=== PATIENT | female | born 1980 | race Caucasian/White ===

== ENCOUNTER 2017-11-09 16:07 | Emergency (ER) | payer OTHER ==
[~2017-11-09] VITALS: Ht 172.7 cm; Wt 66.4 kg
[~2017-11-09 16:07] MED LIST: MULT-506 PO
[2017-11-09 16:11] VITALS: TEMP 37; Ht 172.7 cm; Wt 66.4 kg
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
[2017-11-09 17:49] LABS: HEMATOCRIT 34.4 % (37-47); HEMOGLOBIN 11.5 g/dL (12.0-16.0); MEAN CELL VOLUME 88.7 fL (80-100); MEAN CORPUSCULAR HEMOGLOBIN 29.6 pg (25-34); MEAN CORPUSCULAR HGB CONC 33.4 g/dl (32-36); MEAN PLATELET VOLUME 10.5 fL (7.4-10.4); PLATELET COUNT 241 K/uL (130-400); RED CELL DISTRIBUTION WIDTH CV 14.7 % (11.5-14.5); RED CELL DISTRIBUTION WIDTH SD 47.8 fL (36.4-46.3); WHITE BLOOD COUNT 7.04 K/uL (4.8-10.8)
[2017-11-09 18:09] LABS: ALBUMIN 3.8 gm/dl (3.4-5.0); BASO % 0.4 %; BASO ABS # 0.03 K/uL (0-0.2); CALCIUM 8.3 mg/dl (8.5-10.1); CREATININE 0.73 mg/dl (0.60-1.20); EOS % 0.3 %; EOS ABS # 0.02 K/uL (0-0.5); IG# 0.02 K/uL (0.00-0.02); LYMPH % 20.5 %; LYMPH ABS # 1.44 K/uL (1.2-3.4); MONO % 5.8 %; MONO ABS # 0.41 K/uL (0.11-0.59); NEUT % 72.7 %; NEUT ABS # 5.12 K/uL (1.4-6.5); POTASSIUM 3.3 mmol/L (3.5-5.1)
[2017-11-09 18:20] LABS: TOTAL PROTEIN 7.3 gm/dl (6.4-8.2)
--- NOTE | 2017-11-10 02:15 | EMERGENCY ROOM VISIT NOTE ---
ED Visit Note This patient was signed out to me by Dr. Staton at shift change. The patient was awaiting psychiatric evaluation placement she had been medically cleared. It was felt she needed to come in due to her inability to care for herself with her escalating bipolar. She apparently is not on any meds. She was placed in [place] and will be transferred to [place] in the morning voluntarily on a 201.
--- NOTE | 2017-11-10 08:47 | EMERGENCY ROOM VISIT NOTE ---
ED Visit Note First contact with patient: 07:30 Patient signed out to me by Dr. Alegria. Patient awaiting transport via [facility] to [place]. Patient signed 201. No issues reported to me overnight.
--- NOTE | 2017-11-10 13:17 | EMERGENCY ROOM VISIT NOTE ---
ED Visit Note Patient signed out to me awaiting psych evaluation. Patient not not willing to go 201. 302 filed by patients mother. Patient unable to take care of self due to paranoia. Patient sent admitted to [facility] via 302.
[2017-11-10 13:41] VITALS: BP 123/79; PULSE 72; O2SAT 99
== END 2017-11-10 13:42 ==
LOC: C.EDB 16:09 → C.EDA 11-10 13:42
DX: F30.9 Manic episode, unspecified (principal); F41.0 Panic disorder [episodic paroxysmal anxiety]; J45.909 Unspecified asthma, uncomplicated; Z82.49 Family history of ischemic heart disease and other diseases of the circulatory system; Z84.1 Family history of disorders of kidney and ureter; R03.0 Elevated blood-pressure reading, without diagnosis of hypertension

== ENCOUNTER 2017-12-04 14:01 | Emergency (ER) | payer OTHER ==
[~2017-12-04] VITALS: Ht 175.3 cm; Wt 70.4 kg
[2017-12-04 14:05] VITALS: TEMP 36.4; Ht 175.3 cm; Wt 70.4 kg
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
[2017-12-04] MEDS ORDERED: DPKSR/500 PO (14:55)
[2017-12-04] MEDS ORDERED: TPM25 PO (14:55)
[2017-12-04] MEDS ORDERED: ZYP15 PO (14:55)
[2017-12-04 15:04] LABS: BASO % 0.4 %; BASO ABS # 0.02 K/uL (0-0.2); EOS % 1.2 %; EOS ABS # 0.06 K/uL (0-0.5); HEMATOCRIT 35.1 % (37-47); HEMOGLOBIN 11.8 g/dL (12.0-16.0); IG# 0.01 K/uL (0.00-0.02); LYMPH % 31.1 %; LYMPH ABS # 1.51 K/uL (1.2-3.4); MEAN CELL VOLUME 90.9 fL (80-100); MEAN CORPUSCULAR HEMOGLOBIN 30.6 pg (25-34); MEAN CORPUSCULAR HGB CONC 33.6 g/dl (32-36); MEAN PLATELET VOLUME 10.5 fL (7.4-10.4); MONO ABS # 0.34 K/uL (0.11-0.59); NEUT % 60.1 %; NEUT ABS # 2.92 K/uL (1.4-6.5); PLATELET COUNT 238 K/uL (130-400); RED CELL DISTRIBUTION WIDTH CV 15.2 % (11.5-14.5); RED CELL DISTRIBUTION WIDTH SD 50.7 fL (36.4-46.3); WHITE BLOOD COUNT 4.86 K/uL (4.8-10.8)
--- NOTE | 2017-12-04 15:13 | DIAGNOSTIC IMAGING REPORT ---
CHEST ONE VIEW PORTABLE CLINICAL HISTORY: Chest pain. COMPARISON STUDY: No previous studies for comparison. FINDINGS: There is mild S-shaped curvature of the thoracolumbar spine. No pneumothorax or pleural effusion is identified. Pulmonary vascularity is normal. Cardiac size is normal. Mediastinal contours are normal. Lungs are clear. IMPRESSION: No acute cardiopulmonary findings. Electronically signed by: Samuel Spencer M.D. 12/04/2017 3:12 PM Dictated Date/Time: 12/04/2017 3:11 PM
[2017-12-04 15:29] LABS: ALBUMIN 3.7 gm/dl (3.4-5.0); CALCIUM 8.2 mg/dl (8.5-10.1); CREATININE 0.93 mg/dl (0.60-1.20); POTASSIUM 3.3 mmol/L (3.5-5.1)
[2017-12-04 15:40] LABS: TOTAL PROTEIN 7.2 gm/dl (6.4-8.2)
[2017-12-04 17:21] VITALS: BP 122/78
[2017-12-04 19:00] VITALS: PULSE 86; O2SAT 100
[2017-12-04] MEDS ORDERED: VALA500T60 PO (22:37)
== END 2017-12-04 19:01 | disposition home or self-care (01) ==
LOC: C.EDB 14:05 → C.EDA 19:01
DX: F31.9 Bipolar disorder, unspecified (principal); F41.9 Anxiety disorder, unspecified; R45.851 Suicidal ideations; R07.9 Chest pain, unspecified; Z59.0 Homelessness; J45.909 Unspecified asthma, uncomplicated

== ENCOUNTER 2017-12-04 19:53 | Emergency (ER) | payer OTHER ==
[~2017-12-04] VITALS: Ht 175.3 cm; Wt 70.4 kg
[~2017-12-04 19:53] MED LIST changes: +DPKSR/500 PO; +TPM25 PO; +ZYP15 PO
[2017-12-04 20:02] VITALS: TEMP 37; Ht 175.3 cm; Wt 70.4 kg
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
[2017-12-04] MEDS ORDERED: TOPIRAMATE 25 MG TAB PO STA (21:50)
[2017-12-04] MEDS ORDERED: DIVALPROEX 500 MG EXTENDED RELEASE TAB PO ONE (22:00)
[2017-12-04] MEDS ORDERED: VALA500T60 PO (22:37)
[2017-12-04] MEDS ORDERED: OLANZAPINE 5 MG TAB PO ONE (22:45)
[2017-12-05] MEDS ORDERED: POTASSIUM CHLORIDE 20 MEQ TABCR PO STA (01:06)
--- NOTE | 2017-12-05 02:33 | EMERGENCY ROOM VISIT NOTE ---
ED Visit Note First contact with patient: 00:23 This case was signed out to me at change of shift awaiting bed placement. The patient requested a dose of Valtrex stating that she is under significant increased stress and is concerned that she may have an outbreak of herpes as a result of this. She states that she typically takes this prophylactically in such situations. This patient was accepted at [facility] psychiatric facility. She will be transported there at 3:15.
[2017-12-05 03:30] VITALS: BP 104/67; PULSE 82; O2SAT 99
[2017-12-05] MEDS ORDERED: OLANZAPINE 10 MG TAB PO SCH (21:00)
== END 2017-12-05 03:32 ==
LOC: C.EDA 19:55
DX: F06.33 Mood disorder due to known physiological condition with manic features (principal); F41.9 Anxiety disorder, unspecified; J45.909 Unspecified asthma, uncomplicated; F41.0 Panic disorder [episodic paroxysmal anxiety]

== ENCOUNTER → 2017-12-19 | Outpatient (CLI) | payer OTHER ==
[~2017-12-19] MED LIST changes: -MULT-506 PO; +VALA500T60 PO
[2017-12-19 14:14] LABS: ALBUMIN 3.7 gm/dl (3.4-5.0); TOTAL PROTEIN 7.4 gm/dl (6.4-8.2)
== END | disposition home or self-care (01) ==
LOC: C.LAB1850 11:32
PROVIDERS: ATTEND Psychiatry & Neurology Psychiatry
DX: F31.2 Bipolar disorder, current episode manic severe with psychotic features (principal)

== ENCOUNTER 2017-12-31 11:28 | Emergency (ER) | payer OTHER ==
[~2017-12-31] VITALS: Ht 175.3 cm; Wt 77.7 kg
[2017-12-31 11:30] VITALS: TEMP 36.6; Ht 175.3 cm; Wt 77.7 kg
[2017-12-31] MEDS ORDERED: KETOROLAC TROMETHAMINE 30 MG/ML VIAL IV STA (11:49)
[2017-12-31] MEDS ORDERED: SODIUM CHLORIDE 0.9% 1000ML 1,000 ML IV STA (11:49)
[2017-12-31] MEDS ORDERED: ERTA1INJ IV (11:55)
[2017-12-31 12:54] LABS: ALBUMIN 3.8 gm/dl (3.4-5.0); ALKALINE PHOSPHATASE 55 U/L (45-117); ALT/SGPT 25 U/L (12-78); AST/SGOT 21 U/L (15-37); BLOOD UREA NITROGEN 17 mg/dl (7-18); CALCIUM 8.2 mg/dl (8.5-10.1); CARBON DIOXIDE 25 mmol/L (21-32); CREATININE 0.73 mg/dl (0.60-1.20); GLUCOSE 81 mg/dl (70-99); LIPASE 241 U/L (73-393); POTASSIUM 4.2 mmol/L (3.5-5.1); SODIUM 139 mmol/L (136-145); TOTAL PROTEIN 7.6 gm/dl (6.4-8.2)
--- NOTE | 2017-12-31 13:42 | DIAGNOSTIC IMAGING REPORT ---
PELVIC ULTRASOUND, TRANSABDOMINAL AND TRANSVAGINAL HISTORY: Left lower quadrant abdominal pain. COMPARISON: Pelvic ultrasound 10/22/2013. FINDINGS: Uterus: 10.4 x 6.3 x 7.2 cm. No uterine masses. Endometrial stripe: 1.5 cm in thickness. The major venous slightly heterogeneous. Right ovary: Normal in size and demonstrates normal color flow. A few small follicles/cysts. Left ovary: Normal in size and demonstrates normal color flow. A few small follicles/cysts. Dominant cyst measures 2.3 cm. Miscellaneous:Trace pelvic free fluid. This is likely physiologic. IMPRESSION: 1. Slightly heterogeneous endometrium which is top normal in thickness measuring 1.5 cm. Please correlate with the stage of the patient's menstrual cycle. 2. Trace pelvic free fluid which is likely physiologic. 3. Normal ovaries. Electronically signed by: Tomi Ryan M.D. 12/31/2017 1:41 PM Dictated Date/Time: 12/31/2017 1:36 PM
[2017-12-31 13:54] LABS: BASO % 0.9 %; BASO ABS # 0.04 K/uL (0-0.2); EOS % 5.1 %; EOS ABS # 0.23 K/uL (0-0.5); HEMATOCRIT 35.1 % (37-47); HEMOGLOBIN 11.4 g/dL (12.0-16.0); IG# 0.01 K/uL (0.00-0.02); LYMPH % 32.3 %; LYMPH ABS # 1.46 K/uL (1.2-3.4); MEAN CELL VOLUME 94.6 fL (80-100); MEAN CORPUSCULAR HEMOGLOBIN 30.7 pg (25-34); MEAN CORPUSCULAR HGB CONC 32.5 g/dl (32-36); MEAN PLATELET VOLUME 11.2 fL (7.4-10.4); MONO % 9.5 %; MONO ABS # 0.43 K/uL (0.11-0.59); NEUT ABS # 2.35 K/uL (1.4-6.5); PLATELET COUNT 158 K/uL (130-400); RED CELL DISTRIBUTION WIDTH CV 15.1 % (11.5-14.5); RED CELL DISTRIBUTION WIDTH SD 51.8 fL (36.4-46.3); WHITE BLOOD COUNT 4.52 K/uL (4.8-10.8)
[2017-12-31 14:40] VITALS: BP 122/82; PULSE 84; O2SAT 98
--- NOTE | 2017-12-31 15:03 | EMERGENCY ROOM VISIT NOTE ---
History Report prepared by Rubin: Balwinder Bay Under the Supervision of: Dr. Kirk Burks D.O. First contact with patient: 11:36 Chief Complaint: ABDOMINAL PAIN Stated Complaint: ABD PAIN, POSS HERPES RELATED History of Present Illness The patient is a 37 year old female who presents to the Emergency Room with complaints of intermittent LLQ abdominal pain beginning one week ago. The patient has a history of similar abdominal pain with uncertain cause. She has a history of herpes (x1 month) and is worried her symptoms may be related. She feels that she could have something pushing on her herpes lesions. The patient rates her pain as a 5/10 in severity. She describes her pain as "sharp" and "stabbing". Her pain is improved with eating less. The patient notes that she had recent unprotected intercourse two weeks ago and is worried she could be . Her last normal bowel movement was today. Patient has no other complaints at this time. Source of History: patient Onset: One week ago Position: abdomen (LLQ) Symptom Intensity: 5/10 Quality: sharp, stabbing Timing: intermittent Modifying Factors (Relieving): other (Eating less) Review of Systems See HPI for pertinent positives & negatives. A total of 10 systems reviewed and were otherwise negative. Past Medical & Surgical Medical Problems: (1) Asthma (2) Panic disorder Family History FH: cancer Hypertension Kidney disease Kidney stones Social History Smoking Status: Never Smoker Alcohol Use: none Marital Status: single Housing Status: lives with family Occupation Status: employed Current/Historical Medications Scheduled Ertapenem Sodium (Invanz), 1 GM IV UD Valacyclovir (Valtrex), 500 MG PO DAILY Allergies Coded Allergies: No Known Allergies (Unverified , 12/31/17) Physical Exam Vital Signs Date Time Temp Pulse Resp B/P (MAP) Pulse Ox O2 Delivery O2 Flow Rate FiO2 12/31/17 14:40 84 20 122/82 98 12/31/17 13:42 84 20 108/82 100 Room Air 12/31/17 11:30 36.6 88 18 120/77 98 Room Air Physical Exam GENERAL: Sitting up in bed, disheveled, no distress, non-toxic EYE EXAM: normal conjunctiva. OROPHARYNX: no exudate, no erythema, lips, buccal mucosa, and tongue normal and mucous membranes are moist NECK: supple, no nuchal rigidity, no adenopathy, non-tender LUNGS: Clear to auscultation. Normal chest wall mechanics HEART: no murmurs, S1 normal and S2 normal ABDOMEN: abdomen soft, non-tender, normo-active bowel sounds, no masses, no rebound or guarding. BACK: Back is symmetrical on inspection and there is no deformity, no midline tenderness, no CVA tenderness. PELVIC: Normal external genitalia with exception of two small bumps of left labia majora. Normal vaginal mucosa. No adnexal tenderness. SKIN: no rashes and no bruising UPPER EXTREMITIES: upper extremities are grossly normal. LOWER EXTREMITIES: No pitting edema. NEURO EXAM: Normal sensorium, cranial nerves II-XII grossly intact, normal speech, no gross weakness of arms, no gross weakness of legs. Medical Decision & Procedures ER Provider Diagnostic Interpretation: Radiology results as stated below per my review and the radiologist's interpretation: PELVIC ULTRASOUND, TRANSABDOMINAL AND TRANSVAGINAL FINDINGS: Uterus: 10.4 x 6.3 x 7.2 cm. No uterine masses. Endometrial stripe: 1.5 cm in thickness. The major venous slightly heterogeneous. Right ovary: Normal in size and demonstrates normal color flow. A few small follicles/cysts. Left ovary: Normal in size and demonstrates normal color flow. A few small follicles/cysts. Dominant cyst measures 2.3 cm. Miscellaneous:Trace pelvic free fluid. This is likely physiologic. IMPRESSION: 1. Slightly heterogeneous endometrium which is top normal in thickness measuring 1.5 cm. Please correlate with the stage of the patient's menstrual cycle. 2. Trace pelvic free fluid which is likely physiologic. 3. Normal ovaries. Electronically signed by: Tomi Ryan M.D. 12/31/2017 1:41 PM Laboratory Results 12/31/17 13:38 Red Blood Count 3.71, Mean Corpuscular Volume 94.6, Mean Corpuscular Hemoglobin 30.7, Mean Corpuscular Hemoglobin Concent 32.5, Mean Platelet Volume 11.2, Neutrophils (%) (Auto) 52.0, Lymphocytes (%) (Auto) 32.3, Monocytes (%) (Auto) 9.5, Eosinophils (%) (Auto) 5.1, Basophils (%) (Auto) 0.9, Neutrophils # (Auto) 2.35, Lymphocytes # (Auto) 1.46, Monocytes # (Auto) 0.43, Eosinophils # (Auto) 0.23, Basophils # (Auto) 0.04 12/31/17 12:06 Test 12/31/17 12:06 12/31/17 12:15 12/31/17 13:38 12/31/17 13:50 Anion Gap 5.0 mmol/L (3-11) Est Creatinine Clear Calc Drug Dose 109.3 ml/min Estimated GFR () 121.1 Estimated GFR (Non- 104.5 BUN/Creatinine Ratio 23.0 (10-20) Calcium Level 8.2 mg/dl (8.5-10.1) Total Bilirubin 0.3 mg/dl (0.2-1) Direct Bilirubin < 0.1 mg/dl (0-0.2) Aspartate Amino Transf (AST/SGOT) 21 U/L (15-37) Alanine Aminotransferase (ALT/SGPT) 25 U/L (12-78) Alkaline Phosphatase 55 U/L (45-117) Total Protein 7.6 gm/dl (6.4-8.2) Albumin 3.8 gm/dl (3.4-5.0) Lipase 241 U/L (73-393) Urine Color YELLOW Urine Appearance CLEAR (CLEAR) Urine pH 5.5 (4.5-7.5) Urine Specific Dorena 1.023 (1.000-1.030) Urine Protein NEG (NEG) Urine Glucose (UA) NEG (NEG) Urine Ketones NEG (NEG) Urine Occult Blood NEG (NEG) Urine Nitrite NEG (NEG) Urine Bilirubin NEG (NEG) Urine Urobilinogen NEG (NEG) Urine Leukocyte Esterase SMALL (NEG) Urine WBC (Auto) 5-10 /hpf (0-5) Urine RBC (Auto) 0-4 /hpf (0-4) Urine Hyaline Casts (Auto) 1-5 /lpf (0-5) Urine Epithelial Cells (Auto) >30 /lpf (0-5) Urine Bacteria (Auto) 1+ (NEG) Urine Test NEG (NEG) White Blood Count 4.52 K/uL (4.8-10.8) Red Blood Count 3.71 M/uL (4.2-5.4) Hemoglobin 11.4 g/dL (12.0-16.0) Hematocrit 35.1 % (37-47) Mean Corpuscular Volume 94.6 fL (80-100) Mean Corpuscular Hemoglobin 30.7 pg (25-34) Mean Corpuscular Hemoglobin Concent 32.5 g/dl (32-36) Platelet Count 158 K/uL (130-400) Mean Platelet Volume 11.2 fL (7.4-10.4) Neutrophils (%) (Auto) 52.0 % Lymphocytes (%) (Auto) 32.3 % Monocytes (%) (Auto) 9.5 % Eosinophils (%) (Auto) 5.1 % Basophils (%) (Auto) 0.9 % Neutrophils # (Auto) 2.35 K/uL (1.4-6.5) Lymphocytes # (Auto) 1.46 K/uL (1.2-3.4) Monocytes # (Auto) 0.43 K/uL (0.11-0.59) Eosinophils # (Auto) 0.23 K/uL (0-0.5) Basophils # (Auto) 0.04 K/uL (0-0.2) RDW Standard Deviation 51.8 fL (36.4-46.3) RDW Coefficient of Variation 15.1 % (11.5-14.5) Immature Granulocyte % (Auto) 0.2 % Immature Granulocyte # (Auto) 0.01 K/uL (0.00-0.02) Date/Time Source Procedure Growth Status 12/31/17 13:50 Cervix Lesion Trichomonas Preparation - Final Complete Laboratory results per my review. Medications Administered Medications (Trade) Dose Ordered Sig/Denzel Route Start Time Stop Time Status Last Admin Dose Admin Sodium Chloride 1,000 ml @ 999 mls/hr Q1H1M STAT IV 12/31/17 11:49 12/31/17 12:49 DC 12/31/17 12:06 999 MLS/HR Ketorolac Tromethamine (Toradol Inj) 30 mg NOW STAT IV 12/31/17 11:49 12/31/17 11:52 DC 12/31/17 12:06 30 MG ED Course ED COURSE: Vital signs were reviewed and appeared normal The patients medical record was reviewed The above diagnostic studies were performed and reviewed. ED treatments and interventions as stated above. 1143: The patient was evaluated in room C3. A complete history and physical examination was performed. 1149: Ordered Toradol Inj 30 mg IV, Sodium Chloride 1000 ml @ 999 mls/hr IV. 1426: Upon reevaluation, the patient is resting comfortably. I discussed my findings with the patient and she understands and agrees with the treatment plan. Based on the patients age, coexisting illnesses, exam and lab findings the decision to treat as an outpatient was made. The patient remained stable while under my care. The patient appeared well at the time of discharge. Medical Decision Differential diagnoses includes but is not limited to gastritis, peptic ulcer disease, GERD, gallbladder disease, pancreatitis, small bowel obstruction, acute coronary syndrome, pericarditis, ischemic bowel, irritable bowel disease, irritable bowel syndrome, appendicitis, diverticulitis, malignancy, hernia, urinary tract infection, torsion, /ectopic , perforation, trauma, infectious. Patient is a 37-year-old female who presents the ER for left lower quadrant abdominal pain which is worsened after eating. She does note some recent herpetic lesions which does cause her to have some burning with urination. Abdominal exam is benign. CBC along with BMP, LFTs, bilirubin lipase is normal. UA contaminated with multiple epithelial cells. We will not treat at this time. Urine negative. Pelvic ultrasound was fairly unremarkable. Pelvic was benign without signs of STDs. Cultures were sent. Patient was updated at bedside as this is worse after eating I do not feel that this is STD related especially with the benign pelvic. Patient was updated at bedside. Will await cultures. Instructed to take Tylenol Motrin. Nothing to suggest obstruction and she is eating and drinking without difficulty. Discussed with Pt concerning signs and symptoms to watch out for. Pt was instructed to follow up with their PCP and discussed with the patient their option to return to the ED at anytime for persistent or worsening symptoms. The appropriate anticipatory guidance and out-patient management, including indications for return to the emergency department, were explained at length to the patient and understood. Medication Reconcilliation Current Medication List: was personally reviewed by me Blood Pressure Screening Patient's blood pressure: Normal blood pressure Blood pressure disposition: Did not require urgent referral Impression Primary Impression: Abdominal pain Scribe Attestation The scribe's documentation has been prepared under my direction and personally reviewed by me in its entirety. I confirm that the note above accurately reflects all work, treatment, procedures, and medical decision making performed by me. Departure Information Dispostion Home / Self-Care Referrals RV. Castañeda MD (PCP) Forms Call Back Authorization, HOME CARE DOCUMENTATION FORM, IMPORTANT VISIT INFORMATION Patient Instructions Abdominal Pain - [facility], [facility] Additional Instructions Please follow up with your primary care doctor with in the next 24 hours. Any worsening of your symptoms, please return to the ED immediately. This includes any fevers greater than 100.4, worsening pain, chest pain, shortness breath, persistent nausea, vomiting, unable to eat or drink, or any other concerning signs or symptoms from your standpoint. Please take Tylenol or Motrin as needed for pain. Problem Qualifiers Primary Impression: Abdominal pain Abdominal location: unspecified location Qualified Codes: R10.9 - Unspecified abdominal pain
== END 2017-12-31 14:42 | disposition home or self-care (01) ==
LOC: C.EDB 11:31 → C.EDC 14:42
DX: R10.32 Left lower quadrant pain (principal); N94.9 Unspecified condition associated with female genital organs and menstrual cycle; Z86.59 Personal history of other mental and behavioral disorders

== ENCOUNTER 2021-12-07 08:47 | Inpatient (IN) ==
[2021-12-07] MEDS ORDERED: LORazepam 1 MG TAB PO PRN (09:39)
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
[2021-12-07 10:21] LABS: Basophils # (auto) 0.03 K/uL (0-0.2); Basophils % (auto) 0.7 %; Eosinophils # (auto) 0.04 K/uL (0-0.5); Eosinophils % (auto) 0.9 %; Hemoglobin 12.2 g/dL (12.0-16.0); Lymphocytes # (auto) 1.11 K/uL (1.2-3.4); Mean Corpuscular Hemoglobin 29.5 pg (25-34); Mean Corpuscular Volume 89.4 fL (80-100); Mean Platelet Volume 11.4 fL (7.4-10.4); Monocytes # (auto) 0.44 K/uL (0.11-0.59); Monocytes % (auto) 9.9 %; Neutrophils # (auto) 2.82 K/uL (1.4-6.5); Neutrophils % (auto) 63.5 %; Platelet Count 277 K/uL (130-400); RDW Coefficient of Variation 14.5 % (11.5-14.5); RDW Standard Deviation 47.3 fL (36.4-46.3); Red Blood Count 4.14 M/uL (4.2-5.4); White Blood Count 4.44 K/uL (4.8-10.8)
[2021-12-07 10:41] LABS: Pregnancy Test, Serum Negative (Negative)
[2021-12-07 10:44] LABS: Acetaminophen < 3 ug/ml (10-30); Salicylate < 3.0 mg/dl (3.0-30)
[2021-12-07 10:46] LABS: Alanine Aminotransferase 9 U/L (7-52); Albumin Globulin Ratio 1.5 (0.9-2); Albumin Level 4.2 gm/dl (3.4-5.0); Alkaline Phosphatase 56 U/L (34-104); Anion Gap 7 (3-11); Aspartate Aminotransferase 17 U/L (13-39); BUN Creatinine Ratio 19.4 (10-20); Bilirubin,Total 1.4 mg/dl (0.2-1.0); Blood Urea Nitrogen 12 mg/dl (6-23); Carbon Dioxide 26 mmol/L (21-32); Chloride 108 mmol/L (98-107); Est GFR (African American) 128.9 ml/min; Est GFR (Non-African American) 111.2 ml/min; Globulin 2.8 gm/dl (2.5-4.0); Glucose 84 mg/dl (70-99(Fasting)); Potassium 3.5 mmol/L (3.5-5.1); Sodium 141 mmol/L (136-145)
[2021-12-07 12:50] LABS: Appearance Urine Clear (Clear); Bacteria Urine Automated Negative (Negative); Bilirubin Urine Negative (Negative); Blood Urine Negative (Negative); Color Urine Yellow; Epithelial Cell Urine Auto >30 /lpf (0-5); Glucose Urine UA Negative (Negative); Ketones Urine 1+ (Negative); Leukocyte Esterase Urine Negative (Negative); Nitrite Urine Negative (Negative); RBC Urine Automated 0-4 /hpf (0-4); Specific Gravity Urine 1.023 (1.000-1.030); Urobilinogen Urine Negative (Negative); pH Urine 7.5 (4.5-7.5)
[2021-12-07 12:56] LABS: Protein Urine Trace (Negative)
[2021-12-07 13:11] LABS: Amphetamines+Metham, Urine Neg (Neg); Barbiturates, Urine Neg (Neg); Benzodiazepine, Urine Neg (Neg); Cocaine, Urine Neg (Neg); MDMA (Ecstacy), Urine Neg (Neg); Methadone, Urine Neg (Neg); Opiate, Urine Neg (Neg); Phencyclidine, Urine Neg (Neg)
--- NOTE | 2021-12-07 15:45 | Emergency Department Note ---
ED Visit Note ED Physician Sign Out Note: 41 yr old female arriving with increasing manic thoughts with suicidal thoughts. Here requesting psychiatric hospitalization. Initially evaluated and medically cleared by Dr Guzman pending placement. Was evaluated by [facility] and patient signed a 201 voluntary commitment. This was signed by me. She will be excepted to [facility] for further management and evaluation. Saurav Enriquez MD
[2021-12-07] MEDS ORDERED: MAGNESIUM HYDROXIDE SUSP 30 ML UDC PO PRN (16:43)
[2021-12-07] MEDS ORDERED: SODIUM CHLORIDE 0.65% NA SOLN 45 ML (OCEAN) PRN (16:43)
[2021-12-07] MEDS ORDERED: BISMUTH SUBSALICYLATE LIQD 236 ML PO PRN (16:43)
[2021-12-07] MEDS ORDERED: ALUMINUM/MAGNESIUM SUSP 30 ML UDC PO PRN (16:43)
[2021-12-07] MEDS ORDERED: ACETAMINOPHEN 325 MG TAB PO PRN (16:43)
[2021-12-07] MEDS ORDERED: QUEtiapine FUMARATE 100 MG TABLET PO PRN (17:35)
[2021-12-07] MEDS ORDERED: Flu Vaccine (Fluarix) 0.5mL SYR (Standard Dose) IM ONE (22:00)
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
[2021-12-08] MEDS: hydrOXYzine HCl 25 MG TAB PO PRN ×2 (14:05→20:53)
[2021-12-09 08:19] LABS: Chol HDL Ratio 3.5 (0-5)
--- NOTE | 2021-12-09 08:35 | Psychiatric Progress Note ---
Date of Service December 09, 2021 Impression / Recommendations Impression The patient is a 41 year old with a history of OCD, BPAD, PTSD and MCKAYLA with panic attacks and agoraphobia who was admitted for increasing anxiety and paranoia. Diagnostically consistent with acute meet from BPAD as well as co- morbid conditions per history. The patient is deemed unstable and requires psychiatric hospitalization for diagnostic clarification, safety and stabilization, medication management and development of further coping skills. MNPR due to paranoia and acute meet and concerns of being monitored by peers. 12/09/21: Reviewed fasting labs, which were normal (LDL low risk at 109). Decline d Abilify but agrees to try tomorrow. Utilizing Vistaril for anxiety with good effect. Continues to present with symptoms concerning for meet with irritability, mood lability and paranoia. (1) Bipolar 1 disorder with moderate meet: (2) Panic disorder/agoraphobia, sev agoraphobic avoidance/mod panic attack: (3) Suicidal ideations: (4) Generalized anxiety disorder with panic attacks: (5) Post traumatic stress disorder (PTSD): (6) OCD (obsessive compulsive disorder): 12/09/21: provided with clock per her request. Continue current medications and tx plan. 12/08/21: The patient was admitted to the [facility] ([facility] inpatient mental health unit) on q15 min checks (behavioral with suicide precautions) for safety. The patient will participate in group, recreational, and milieu therapies and will be offered additional individual and family sessions as clinically appropriate. -fasting glucose and lipid panel -ativan 0.5 mg BID prn -abilify 2.5 mg qd -Vistaril 25mg q4h prn Inventory Assets Strengths: motivated to feel better, suportive family Needs: additional coping skills, outpatient providers, medication adjustments Risk Factors Assessment : Yes Do You Have Access To A Gun?: No Health Problems: No Mental Health Diagnoses: Yes Substance Use Disorders: No Previous Attempt: Yes Family History of Suicide: No Previous Psychiatric Hospitalization: Yes Hopelessness: Yes Protective Factors Assessment Responsible for Young Children: Yes Employed: No Stable Relationships: Yes Supportive Family: Yes Interval History Identifying Information JANIYA FERNANDEZ is a 41-year-old woman who currently lives with her parents in their home in [place], has a history of BPAD, OCD, PTSD, and MCKAYLA with panic attacks and agoraphobia and was admitted on 12/07/21 17:21 on a 201 voluntary commitment for increased anxiety, SI and concern for acute meet. Chief Complaint "I'm really irritable today". Review of Systems Sleep Information Total Hours of Sleep: 10 Meal Information Percent Meal Consumed - Breakfast: 85 Percent Meal Consumed - Lunch: 75 Percent Meal Consumed - Dinner: 75 Nutrition Comment: per meal record Subjective Subjective Patient was seen & assessed and interval progress reviewed with treatment team nursing and social work. Less grandiose and irritable last night but still very tangential. Fell asleep last night and slept through both groups. Got very upset when staff were doing checks overnight and found a spoon in her room and started to remove it and she became very anxious about staff and not sure where she was and fears that someone was trying to hurt her. She requested a sign on her door stating she was agoraphobic but changed her mind about this. Utilized prn Vistaril, declined prn ativan. Frustrated this morning that another peer's clothing was in the unit dryer and therefore did not want to use the washer. Anxious about showering here. Declined morning abilify. Reviewed fasting labs with her. She reports feeling "very irritable" and "angry" and "depressed" which she attributes to being in the hospital for [facility] and due to not having the meal items she wanted on her breakfast tray. Wonders if others may have moved around her items or put extra items, such as syrup, on her tray to "mess with me". Reviewed her concerns about staff checks and discussed plan of having staff try to wake her up if they need to remove anything from her room. Reviewed her concerns about abilify-she feels if she takes it today she will attribute her poor mood to a medication side effect since her breakfast was "messed up". She agreed to start it tomorrow. Reviewed her past trial of Invega PICKETT which lead to orthostatic hypotension and dizziness. Tearful at times discussing challenge of being in the hospital and her recent move and how this makes her agoraphobia worse. Found the vistaril helpful, denies any side effects except some fatigue from this. Physical Exam Psychiatric Orientation: alert and oriented x 3 Apperance: appropriately dressed and appropriately groomed Eye Contact: good eye contact Motor Behavior: no abnormal motor movements; no psychomotor agitation Speech: + abnormal rate/rhythm/volume of speech (rapid, clanging) Affect: + labile affect (tearfulness and irritable ) Mood: + depressed mood, + anxious mood and + irritable mood Thought Process: + tangential thought process and + flight of ideas Thought Content: + obsessions, + paranoid and + compulsions Suicidal Thoughts: denies suicidal thoughts Homicidal Thoughts: denies homicidal thoughts Hallucinations: no auditory hallucinations and no visual hallucinations Cognition: recent memory grossly intact, remote memory grossly intact and language grossly intact; + attention not intact Insight: + limited insight Judgement: + limited judgement Vital Signs (Past 24 Hours) Last Vital Signs Temp 36.4 C L 12/09/21 06:53 Pulse 79 12/09/21 06:54 Resp 16 12/09/21 06:53 BP 125/84 12/09/21 06:54 Pulse Ox 98 12/07/21 17:11 Results & Data ([facility]) Laboratory Results Laboratory Results - last 24 hr 12/09/21 07:32 Fasting Glucose 83 Triglycerides 87 Cholesterol 176 LDL Cholesterol, Calc 109 VLDL Cholesterol, Calc 17 HDL Cholesterol 50 Cholesterol/HDL Ratio 3.5 Current Inpatient Medications Current Inpatient Medications: Current Inpatient Medications Acetaminophen (Acetaminophen 325 Mg Tab) 650 mg PO Q4H PRN PRN Reason: Headache or Minor Fever Stop: 01/06/22 16:42 Al Hydrox/Mg Hydrox/Simethicone (Aluminum/Magnesium Susp 30 Ml Udc) 30 ml PO Q4H PRN PRN Reason: GI Upset Stop: 01/06/22 16:42 Aripiprazole (Aripiprazole 5 Mg Tab) 2.5 mg PO QAM FATOU Stop: 01/08/22 08:59 Bismuth Subsalicylate (Bismuth Subsalicylate Liqd 236 Ml) 15 ml PO PRN PRN PRN Reason: Loose Stool Stop: 01/06/22 16:42 Hydroxyzine HCl (Hydroxyzine Hcl 25 Mg Tab) 50 mg PO HSZ PRN PRN Reason: Insomnia Stop: 01/06/22 16:42 Last Admin: 12/08/21 20:53 Dose: 50 mg Documented by: Hydroxyzine HCl (Hydroxyzine Hcl 25 Mg Tab) 25 mg PO Q4H PRN PRN Reason: Anxiety Stop: 01/06/22 16:42 Last Admin: 12/08/21 14:05 Dose: 25 mg Documented by: Lorazepam (Lorazepam 1 Mg Tab) 2 mg PO ONCE PRN PRN Reason: Agitation Stop: 01/06/22 09:38 Last Admin: 12/07/21 19:13 Dose: 2 mg Documented by: Lorazepam (Lorazepam 0.5 Mg Tab) 0.5 mg PO BID PRN PRN Reason: Anxiety Stop: 01/07/22 14:05 Magnesium Hydroxide (Magnesium Hydroxide Susp 30 Ml Udc) 30 ml PO DAILY PRN PRN Reason: Constipation Stop: 01/06/22 16:42 Quetiapine Fumarate (Quetiapine Fumarate 100 Mg Tablet) 100 mg PO BID PRN PRN Reason: Agitation Stop: 01/06/22 20:59 Sodium Chloride (Sodium Chloride 0.65% Na Soln 45 Ml ([place])) 1 - 2 sprays NA PRN PRN PRN Reason: Nasal Dryness/Congestion Stop: 01/06/22 16:42 Mental Health & Subst Abuse Tx Therapist Name of Therapist: None Cement Breaker Name of Cement Breaker: None Post Discharge Appointments Primary Care Physician Name Of Family Doctor: JHONNY
[2021-12-09] MEDS: ARIPiprazole 5 MG TAB PO SCH (10:06)
[2021-12-10] MEDS: ARIPiprazole 5 MG TAB PO SCH (07:38)
--- NOTE | 2021-12-10 08:34 | Psychiatric Progress Note ---
Date of Service December 10, 2021 Impression / Recommendations Impression The patient is a 41 year old with a history of OCD, BPAD, PTSD and MCKAYLA with panic attacks and agoraphobia who was admitted for increasing anxiety and paranoia. Diagnostically consistent with acute meet from BPAD as well as co- morbid conditions per history. The patient is deemed unstable and requires psychiatric hospitalization for diagnostic clarification, safety and stabilization, medication management and development of further coping skills. MNPR due to paranoia and acute meet and concerns of being monitored by peers. 12/10/21: Tolerating initial dose of Abilify, goal will be slow titration as pamelabrendan rated given her concerns about medication side effects. Continues to present with acute meet but encouraging is sleeping well. Utilizing Vistaril for anxiety with good effect. Significant staff splitting and given her paranoia will attempt to meet with her in pairs. Spent 1 hour with her as part of individual treatment team meeting and answering her questions and concerns. (1) Bipolar 1 disorder with moderate meet: (2) Panic disorder/agoraphobia, sev agoraphobic avoidance/mod panic attack: (3) Suicidal ideations: (4) Generalized anxiety disorder with panic attacks: (5) Post traumatic stress disorder (PTSD): (6) OCD (obsessive compulsive disorder): 12/10/21: Continue with abilify and Vistaril. Continue with current tx plan. 12/09/21: provided with clock per her request. Continue current medications and tx plan. 12/08/21: The patient was admitted to the [facility] ([facility] mental [facility] unit) on q15 min checks (behavioral with suicide precautions) for safety. The patient will participate in group, recreational, and milieu therapies and will be offered additional individual and family sessions as clinically appropriate. -fasting glucose and lipid panel -ativan 0.5 mg BID prn -abilify 2.5 mg qd -Vistaril 25mg q4h prn Inventory Assets Strengths: motivated to feel better, suportive family Needs: additional coping skills, outpatient providers, medication adjustments Risk Factors Assessment : Yes Do You Have Access To A Gun?: No Health Problems: No Mental Health Diagnoses: Yes Substance Use Disorders: No Previous Attempt: Yes Family History of Suicide: No Previous Psychiatric Hospitalization: Yes Hopelessness: Yes Protective Factors Assessment Responsible for Young Children: Yes Employed: No Stable Relationships: Yes Supportive Family: Yes Interval History Identifying Information JANIYA FERNANDEZ is a 41-year-old woman who currently lives with her parents in their home in [place], has a history of BPAD, OCD, PTSD, and MCKAYLA with panic attacks and agoraphobia and was admitted on 12/07/21 17:21 on a 201 voluntary commitment for increased anxiety, SI and concern for acute meet. Chief Complaint "I hate the word stability because it reminds me of horses". Review of Systems Sleep Information Total Hours of Sleep: 7.5 Sleep Comments: pt on q-15 minute checks Meal Information Percent Meal Consumed - Breakfast: 100 Percent Meal Consumed - Lunch: 100 Percent Meal Consumed - Dinner: 50 Nutrition Comment: Please copy pt. menu Subjective Subjective Patient was seen & assessed and interval progress reviewed with treatment team nursing and social work. Very irritable with staff last night. Stomping in the hallway this morning very loudly and then very irritable toward staff after they asked her to try to walk more gently. Took her abilify this morning and denies any side effects from this. Continues to wonder if I could add an "appetite suppressant" to avoid weight gain. Again reviewed indication of metformin in the future she beagn to develop weight gain or metabolic symptoms but that this wo uld not be indicated at this time given risk of additional side effects and her history of an eating disorder in the past. She agrees with continuing abilify. Met with Loki at 10am for her individualized treatment team along with Onofre, recreation therapist, and Purvi, social work. Reviewed her treatment team goals using an open dialogue approach which Loki stated appreciation for her. In re viewing her length of stay she wonders about the possibility for a longer hospital stay as she finds that being here is helping her, discussed that we'll continue to re-evaluate LOS based on her progress and goals. She agrees with current diagnosis of meet and that she can be irritable at times and sometimes lacks insight into her disruptive behaviors, such as walking in the morales this morning, but also remains fixated at times on why she feels certain staff cannot help her due to their lack of understanding about "agoraphobia". Reviewed that we all have different approaches and that our goal is always to be therapeutic in nature but that she may find she connects better with the approach/personality of certain people and that is ok. Again she wonders about contacting the vice president talent management of the hospital to "get the vibe of this place so I can fit in" but agrees that she is ok not doing this currenltly as I discuss my concerns her impulsivity with meet may cause her to regret this la ter and she agrees stating "thank you, you're right I don't want to have regrets, I don't need to talk to them". Reviewed the hospital's goals of care and philosophy of treatment which she appreciated. Reamins fixated on certain staff, past traumatic events, and feeling suspicious of others including wondering if her room was being cleaned as a way to target her because "my dad worked at [employer] as an FLUX PLANT OPERATOR in the past and a patient there sued for 1 million dollars and maybe now they are targeting me here because of my relationship to my dad". Physical Exam Psychiatric Orientation: alert and oriented x 3 Apperance: appropriately dressed and appropriately groomed Eye Contact: good eye contact Motor Behavior: no abnormal motor movements; no psychomotor agitation Speech: + abnormal rate/rhythm/volume of speech (rapid) Affect: + labile affect (tearfulness and irritable ) Mood: + depressed mood, + anxious mood and + irritable mood Thought Process: + tangential thought process and + flight of ideas Thought Content: + obsessions, + paranoid and + compulsions Suicidal Thoughts: denies suicidal thoughts Homicidal Thoughts: denies homicidal thoughts Hallucinations: no auditory hallucinations and no visual hallucinations Cognition: recent memory grossly intact, remote memory grossly intact and language grossly intact; + attention not intact Insight: + limited insight Judgement: + limited judgement Vital Signs (Past 24 Hours) Last Vital Signs Temp 36.8 C 12/10/21 06:39 Pulse 76 12/10/21 06:40 Resp 16 12/10/21 06:39 BP 118/88 12/10/21 06:40 Pulse Ox 98 12/07/21 17:11 Results & Data ([facility]) Current Inpatient Medications Current Inpatient Medications: Current Inpatient Medications Acetaminophen (Acetaminophen 325 Mg Tab) 650 mg PO Q4H PRN PRN Reason: Headache or Minor Fever Stop: 01/06/22 16:42 Al Hydrox/Mg Hydrox/Simethicone (Aluminum/Magnesium Susp 30 Ml Udc) 30 ml PO Q4H PRN PRN Reason: GI Upset Stop: 01/06/22 16:42 Aripiprazole (Aripiprazole 5 Mg Tab) 2.5 mg PO QAM FATOU Stop: 01/08/22 08:59 Last Admin: 12/10/21 07:38 Dose: 2.5 mg Documented by: Bismuth Subsalicylate (Bismuth Subsalicylate Liqd 236 Ml) 15 ml PO PRN PRN PRN Reason: Loose Stool Stop: 01/06/22 16:42 Hydroxyzine HCl (Hydroxyzine Hcl 25 Mg Tab) 50 mg PO HSZ PRN PRN Reason: Insomnia Stop: 01/06/22 16:42 Last Admin: 12/08/21 20:53 Dose: 50 mg Documented by: Hydroxyzine HCl (Hydroxyzine Hcl 25 Mg Tab) 25 mg PO Q4H PRN PRN Reason: Anxiety Stop: 01/06/22 16:42 Last Admin: 12/08/21 14:05 Dose: 25 mg Documented by: Lorazepam (Lorazepam 1 Mg Tab) 2 mg PO ONCE PRN PRN Reason: Agitation Stop: 01/06/22 09:38 Last Admin: 12/07/21 19:13 Dose: 2 mg Documented by: Lorazepam (Lorazepam 0.5 Mg Tab) 0.5 mg PO BID PRN PRN Reason: Anxiety Stop: 01/07/22 14:05 Magnesium Hydroxide (Magnesium Hydroxide Susp 30 Ml Udc) 30 ml PO DAILY PRN PRN Reason: Constipation Stop: 01/06/22 16:42 Quetiapine Fumarate (Quetiapine Fumarate 100 Mg Tablet) 100 mg PO BID PRN PRN Reason: Agitation Stop: 01/06/22 20:59 Sodium Chloride (Sodium Chloride 0.65% Na Soln 45 Ml ([place])) 1 - 2 sprays NA PRN PRN PRN Reason: Nasal Dryness/Congestion Stop: 01/06/22 16:42 Mental Health & Subst Abuse Tx Therapist Name of Therapist: None Electrician Substation Supervisor Name of Electrician Substation Supervisor: None Post Discharge Appointments Primary Care Physician Name Of Family Doctor: JHONNY
[2021-12-10] MEDS: hydrOXYzine HCl 25 MG TAB PO PRN (10:03)
[2021-12-11] MEDS: ARIPiprazole 5 MG TAB PO SCH (08:17)
--- NOTE | 2021-12-11 08:31 | Psychiatric Progress Note ---
Date of Service December 11, 2021 Impression / Recommendations Impression The patient is a 41 year old with a history of OCD, BPAD, PTSD and MCKAYLA with panic attacks and agoraphobia who was admitted for increasing anxiety and paranoia. Diagnostically consistent with acute meet from BPAD as well as co- morbid conditions per history. The patient is deemed unstable and requires psychiatric hospitalization for diagnostic clarification, safety and stabilization, medication management and development of further coping skills. MNPR due to paranoia and acute meet and concerns of being monitored by peers. 12/11/21: Tolerating initial dose of Abilify, agrees to further titration to yarely t acute meet. Continues to present with acute meet with periods of significant irritability. Utilizing Vistaril for anxiety with good effect. Spent 45 minutes discussing her concerns and her treatment plan and hearing her grievances. (1) Bipolar 1 disorder with moderate meet: (2) Panic disorder/agoraphobia, sev agoraphobic avoidance/mod panic attack: (3) Suicidal ideations: (4) Generalized anxiety disorder with panic attacks: (5) Post traumatic stress disorder (PTSD): (6) OCD (obsessive compulsive disorder): 12/11/21: Increase abilify to 5 mg qd. Continue with Vistaril and tx plan. 12/10/21: Continue with abilify and Vistaril. Continue with current tx plan. 12/09/21: provided with clock per her request. Continue current medications and tx plan. 12/08/21: The patient was admitted to the [facility] ([facility] mental health unit) on q15 min checks (behavioral with suicide precautions) for safety. The patient will participate in group, recreational, and milieu therapies and will be offered additional individual and family sessions as clinically appropriate. -fasting glucose and lipid panel -ativan 0.5 mg BID prn -abilify 2.5 mg qd -Vistaril 25mg q4h prn Inventory Assets Strengths: motivated to feel better, suportive family Needs: additional coping skills, outpatient providers, medication adjustments Risk Factors Assessment : Yes Do You Have Access To A Gun?: No Health Problems: No Mental Health Diagnoses: Yes Substance Use Disorders: No Previous Attempt: Yes Family History of Suicide: No Previous Psychiatric Hospitalization: Yes Hopelessness: Yes Protective Factors Assessment Responsible for Young Children: Yes Employed: No Stable Relationships: Yes Supportive Family: Yes Interval History Identifying Information JANIYA FERNANDEZ is a 41-year-old woman who currently lives with her parents in their home in [place], has a history of BPAD, OCD, PTSD, and MCKAYLA with panic attacks and agoraphobia and was admitted on 12/07/21 17:21 on a 201 voluntary commitment for increased anxiety, SI and concern for acute meet. Chief Complaint "I am irritable but also I always talk fast like this, I'm a fast talker". Review of Systems Sleep Information Total Hours of Sleep: 5 Sleep Comments: pt ALEXI @ 0515 and thereafter. pt on q-15 minute checks Meal Information Percent Meal Consumed - Breakfast: 75 Percent Meal Consumed - Lunch: 100 Percent Meal Consumed - Dinner: 100 Nutrition Comment: Patient menu copied Subjective Subjective Patient was seen & assessed and interval progress reviewed with treatment team nursing and social work. Noted she was "irritable" last night. OCD/contamination concerns about showering where other people had been. Attended community meeting and exercise/recreational groups yesterday. Today was upset after what she perceived as an embarrassing interaction when she was told she was excused from process group. Discussed this with her along with Onofre, rec therapist, and DOMINICK Razo, and Janiya felt that other patients needed to know she was excused because group settings can be traumatizing for her and did not want them to think that "I've done something wrong because you said I was excused from the group". Validated her concerns and reiterated our goals to help her the best we can but knowing that at times we will not be perfect and she may feel upset by certain interactions. She feels the abilify is going well without any side effects and requests a dose increase. She agreed to try attending all groups tomorrow to see how this goes. She continues to want to be in the inpatient setting as she wants to keep working on "feeling better". Physical Exam Psychiatric Orientation: alert and oriented x 3 Apperance: appropriately dressed and appropriately groomed Eye Contact: good eye contact Motor Behavior: no abnormal motor movements; no psychomotor agitation Speech: + pressured speech and + loud speech; + abnormal rate/rhythm/volume of speech (rapid) Affect: + labile affect (happy then irritable ) Mood: + depressed mood, + anxious mood and + irritable mood Thought Process: + tangential thought process and + flight of ideas Thought Content: + obsessions, + paranoid and + compulsions Suicidal Thoughts: denies suicidal thoughts Homicidal Thoughts: denies homicidal thoughts Hallucinations: no auditory hallucinations and no visual hallucinations Cognition: recent memory grossly intact, remote memory grossly intact and language grossly intact; + attention not intact Insight: + limited insight Judgement: + limited judgement Vital Signs (Past 24 Hours) Last Vital Signs Temp 36.9 C 12/11/21 08:12 Pulse 86 12/11/21 08:12 Resp 16 12/11/21 08:12 BP 126/82 12/11/21 08:12 Pulse Ox 98 12/07/21 17:11 Results & Data ([facility]) Current Inpatient Medications Current Inpatient Medications: Current Inpatient Medications Acetaminophen (Acetaminophen 325 Mg Tab) 650 mg PO Q4H PRN PRN Reason: Headache or Minor Fever Stop: 01/06/22 16:42 Al Hydrox/Mg Hydrox/Simethicone (Aluminum/Magnesium Susp 30 Ml Udc) 30 ml PO Q4H PRN PRN Reason: GI Upset Stop: 01/06/22 16:42 Aripiprazole (Aripiprazole 5 Mg Tab) 2.5 mg PO QAM FATOU Stop: 01/08/22 08:59 Last Admin: 12/11/21 08:17 Dose: 2.5 mg Documented by: Bismuth Subsalicylate (Bismuth Subsalicylate Liqd 236 Ml) 15 ml PO PRN PRN PRN Reason: Loose Stool Stop: 01/06/22 16:42 Hydroxyzine HCl (Hydroxyzine Hcl 25 Mg Tab) 50 mg PO HSZ PRN PRN Reason: Insomnia Stop: 01/06/22 16:42 Last Admin: 12/08/21 20:53 Dose: 50 mg Documented by: Hydroxyzine HCl (Hydroxyzine Hcl 25 Mg Tab) 25 mg PO Q4H PRN PRN Reason: Anxiety Stop: 01/06/22 16:42 Last Admin: 12/10/21 10:03 Dose: 25 mg Documented by: Lorazepam (Lorazepam 1 Mg Tab) 2 mg PO ONCE PRN PRN Reason: Agitation Stop: 01/06/22 09:38 Last Admin: 12/07/21 19:13 Dose: 2 mg Documented by: Lorazepam (Lorazepam 0.5 Mg Tab) 0.5 mg PO BID PRN PRN Reason: Anxiety Stop: 01/07/22 14:05 Magnesium Hydroxide (Magnesium Hydroxide Susp 30 Ml Udc) 30 ml PO DAILY PRN PRN Reason: Constipation Stop: 01/06/22 16:42 Quetiapine Fumarate (Quetiapine Fumarate 100 Mg Tablet) 100 mg PO BID PRN PRN Reason: Agitation Stop: 01/06/22 20:59 Sodium Chloride (Sodium Chloride 0.65% Na Soln 45 Ml ([place])) 1 - 2 sprays NA PRN PRN PRN Reason: Nasal Dryness/Congestion Stop: 01/06/22 16:42 Mental Health & Subst Abuse Tx Therapist Name of Therapist: None Quality Assurance Coordinator Name of Quality Assurance Coordinator: None Post Discharge Appointments Primary Care Physician Name Of Family Doctor: JHONNY
--- NOTE | 2021-12-12 08:36 | Psychiatric Progress Note ---
Date of Service December 12, 2021 Impression / Recommendations Impression The patient is a 41 year old with a history of OCD, BPAD, PTSD and MCKAYLA with panic attacks and agoraphobia who was admitted for increasing anxiety and paranoia. Diagnostically consistent with acute meet from BPAD as well as co- morbid conditions per history. The patient is deemed unstable and requires psychiatric hospitalization for diagnostic clarification, safety and stabilization, medication management and development of further coping skills. MNPR due to paranoia and acute meet and concerns of being monitored by peers. 12/12/21: Increase abilify to 7.5 mg qhs which she agrees to. Continues to presen t with acute meet with periods of significant irritability and hyperverbal resulting in limited ability to tolerate more focused process groups without causing significant disruption to peers. Remains very fixated on past trauma events and how places her father has ever worked, visited, interacted with are also associated with trauma for her. Utilizing Vistaril for anxiety with good effect. Spent 35 minutes discussing her concerns and her treatment plan and hearing her grievances. (1) Bipolar 1 disorder with moderate meet: (2) Panic disorder/agoraphobia, sev agoraphobic avoidance/mod panic attack: (3) Suicidal ideations: (4) Generalized anxiety disorder with panic attacks: (5) Post traumatic stress disorder (PTSD): (6) OCD (obsessive compulsive disorder): 12/12/21: Increase abilify to 7.5 mg qhs. 12/11/21: Increase abilify to 5 mg qd. Continue with Vistaril and tx plan. 12/10/21: Continue with abilify and Vistaril. Continue with current tx plan. 12/09/21: provided with clock per her request. Continue current medications and tx plan. 12/08/21: The patient was admitted to the [facility] ([facility] mental health unit) on q15 min checks (behavioral with suicide precautions) for safety. The patient will participate in group, recreational, and milieu therapies and will be offered additional individual and family sessions as clinically appropriate. -fasting glucose and lipid panel -ativan 0.5 mg BID prn -abilify 2.5 mg qd -Vistaril 25mg q4h prn Inventory Assets Strengths: motivated to feel better, suportive family Needs: additional coping skills, outpatient providers, medication adjustments Risk Factors Assessment : Yes Do You Have Access To A Gun?: No Health Problems: No Mental Health Diagnoses: Yes Substance Use Disorders: No Previous Attempt: Yes Family History of Suicide: No Previous Psychiatric Hospitalization: Yes Hopelessness: Yes Protective Factors Assessment Responsible for Young Children: Yes Employed: No Stable Relationships: Yes Supportive Family: Yes Interval History Identifying Information JANIYA FERNANDEZ is a 41-year-old woman who currently lives with her parents in their home in [place], has a history of BPAD, OCD, PTSD, and MCKAYLA with panic attacks and agoraphobia and was admitted on 12/07/21 17:21 on a 201 voluntary commitment for increased anxiety, SI and concern for acute meet. Chief Complaint "I am very offended...sorry I'm being so difficult". Review of Systems Sleep Information Total Hours of Sleep: 7 Sleep Comments: pt ALEXI @ 0515 and thereafter. pt on q-15 minute checks Meal Information Percent Meal Consumed - Breakfast: 100 Percent Meal Consumed - Lunch: 100 Percent Meal Consumed - Dinner: 100 Nutrition Comment: Patient menu copied Subjective Subjective Patient was seen & assessed and interval progress reviewed with treatment team nursing and social work. Attended self-awareness group last night. Labile last night, tearful at times but more pleasant. Met with Loki for 30 minutes for individual treatment team along with Onofre rec therapy, and Purvi, social work. Loki had difficulty allowing anyone else to share during process group and does not want staff to excuse her mid-group nor can she tolerate redirection so we discussed having her be excused from process groups for the next 1.5 days but continue to participate in all other groups which she agrees with. She feels the abilify is going well without any side effects and consents to a higher dose of 7.5 mg. Reviewed potential outpatient services, some limited as she will not enage with telemedicine and does not want to do any in-person appointments. She feels her mood is improving. Physical Exam Psychiatric Orientation: alert and oriented x 3 Apperance: appropriately dressed and appropriately groomed Eye Contact: good eye contact Motor Behavior: no abnormal motor movements; no psychomotor agitation Speech: + pressured speech and + loud speech; + abnormal rate/rhythm/volume of speech (rapid) Affect: + labile affect (happy then irritable ) Mood: + depressed mood, + anxious mood and + irritable mood Thought Process: + tangential thought process and + flight of ideas Thought Content: + obsessions, + paranoid and + compulsions Suicidal Thoughts: denies suicidal thoughts Homicidal Thoughts: denies homicidal thoughts Hallucinations: no auditory hallucinations and no visual hallucinations Cognition: recent memory grossly intact, remote memory grossly intact and language grossly intact; + attention not intact Insight: + limited insight Judgement: + limited judgement Vital Signs (Past 24 Hours) Last Vital Signs Temp 36.4 C L 12/12/21 06:00 Pulse 82 12/12/21 06:27 Resp 16 12/12/21 06:00 BP 131/80 12/12/21 06:27 Pulse Ox 98 12/07/21 17:11 Results & Data ([facility]) Current Inpatient Medications Current Inpatient Medications: Current Inpatient Medications Acetaminophen (Acetaminophen 325 Mg Tab) 650 mg PO Q4H PRN PRN Reason: Headache or Minor Fever Stop: 01/06/22 16:42 Al Hydrox/Mg Hydrox/Simethicone (Aluminum/Magnesium Susp 30 Ml Udc) 30 ml PO Q4H PRN PRN Reason: GI Upset Stop: 01/06/22 16:42 Aripiprazole (Aripiprazole 5 Mg Tab) 5 mg PO QAM FATOU Stop: 01/11/22 08:59 Bismuth Subsalicylate (Bismuth Subsalicylate Liqd 236 Ml) 15 ml PO PRN PRN PRN Reason: Loose Stool Stop: 01/06/22 16:42 Hydroxyzine HCl (Hydroxyzine Hcl 25 Mg Tab) 50 mg PO HSZ PRN PRN Reason: Insomnia Stop: 01/06/22 16:42 Last Admin: 12/08/21 20:53 Dose: 50 mg Documented by: Hydroxyzine HCl (Hydroxyzine Hcl 25 Mg Tab) 25 mg PO Q4H PRN PRN Reason: Anxiety Stop: 01/06/22 16:42 Last Admin: 12/10/21 10:03 Dose: 25 mg Documented by: Lorazepam (Lorazepam 1 Mg Tab) 2 mg PO ONCE PRN PRN Reason: Agitation Stop: 01/06/22 09:38 Last Admin: 12/07/21 19:13 Dose: 2 mg Documented by: Lorazepam (Lorazepam 0.5 Mg Tab) 0.5 mg PO BID PRN PRN Reason: Anxiety Stop: 01/07/22 14:05 Magnesium Hydroxide (Magnesium Hydroxide Susp 30 Ml Udc) 30 ml PO DAILY PRN PRN Reason: Constipation Stop: 01/06/22 16:42 Quetiapine Fumarate (Quetiapine Fumarate 100 Mg Tablet) 100 mg PO BID PRN PRN Reason: Agitation Stop: 01/06/22 20:59 Sodium Chloride (Sodium Chloride 0.65% Na Soln 45 Ml ([place])) 1 - 2 sprays NA PRN PRN PRN Reason: Nasal Dryness/Congestion Stop: 01/06/22 16:42 Mental Health & Subst Abuse Tx Therapist Name of Therapist: None Home Demonstrator Name of Home Demonstrator: None Post Discharge Appointments Primary Care Physician Name Of Family Doctor: LORI Kessler Primary Care Provider Appointment Comment: [address] [facility] Contact Information Discharge Discharge Address: [address] [place] [address], [place] [id number]
[2021-12-12] MEDS ORDERED: ARIPiprazole 5 MG TAB PO SCH (09:00)
[2021-12-12] MEDS ORDERED: SIMETHICONE 80 MG CHEW PO PRN (12:40)
[2021-12-12] MEDS: hydrOXYzine HCl 25 MG TAB PO PRN (12:41)
[2021-12-13] MEDS: ARIPiprazole 5 MG TAB PO SCH (07:54)
--- NOTE | 2021-12-13 09:03 | Psychiatric Progress Note ---
Date of Service December 13, 2021 Impression / Recommendations Impression The patient is a 41 year old with a history of OCD, BPAD, PTSD and MCKAYLA with panic attacks and agoraphobia who was admitted for increasing anxiety and paranoia. Diagnostically consistent with acute meet from BPAD as well as co- morbid conditions per history. The patient is deemed unstable and requires psychiatric hospitalization for diagnostic clarification, safety and stabilization, medication management and development of further coping skills. MNPR due to paranoia and acute meet and concerns of being monitored by peers. 12/13/21: Continue with abilify to 7.5 mg qhs, she feels this a good dose for her as she worries about metabolic side effects at higher doses, discussed that she could likely tolerate a higher dose and may find more benefits for mood stabilization, she'll think about this. Continues to present with acute meet. Today continues to have periods of irritability and paranoia vs trauma response to various interactions with peers and staff but slightly better able to tolerate discussions without interrupting as much and pressured speech improving slightly. Remains very tangential and verbose. Utilizing Vistaril and occasionally ativan for anxiety with good effect. Spent 20 minutes discussing her concerns and her treatment plan. (1) Bipolar 1 disorder with moderate meet: (2) Panic disorder/agoraphobia, sev agoraphobic avoidance/mod panic attack: (3) Suicidal ideations: (4) Generalized anxiety disorder with panic attacks: (5) Post traumatic stress disorder (PTSD): (6) OCD (obsessive compulsive disorder): 12/13/21: Continue with current medications and tx plan. 12/12/21: Increase abilify to 7.5 mg qhs. 12/11/21: Increase abilify to 5 mg qd. Continue with Vistaril and tx plan. 12/10/21: Continue with abilify and Vistaril. Continue with current tx plan. 12/09/21: provided with clock per her request. Continue current medications and tx plan. 12/08/21: The patient was admitted to the [facility] ([facility] mental health unit) on q15 min checks (behavioral with suicide precautions) for safety. The patient will participate in group, recreational, and milieu therapies and will be offered additional individual and family sessions as clinically appropriate. -fasting glucose and lipid panel -ativan 0.5 mg BID prn -abilify 2.5 mg qd -Vistaril 25mg q4h prn Inventory Assets Strengths: motivated to feel better, suportive family Needs: additional coping skills, outpatient providers, medication adjustments Risk Factors Assessment : Yes Do You Have Access To A Gun?: No Health Problems: No Mental Health Diagnoses: Yes Substance Use Disorders: No Previous Attempt: Yes Family History of Suicide: No Previous Psychiatric Hospitalization: Yes Hopelessness: Yes Protective Factors Assessment Responsible for Young Children: Yes Employed: No Stable Relationships: Yes Supportive Family: Yes Interval History Identifying Information JANIYA FERNANDEZ is a 41-year-old woman who currently lives with her parents in their home in [place], has a history of BPAD, OCD, PTSD, and MCKAYLA with panic attacks and agoraphobia and was admitted on 12/07/21 17:21 on a 201 voluntary commitment for increased anxiety, SI and concern for acute meet. 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 Review of Systems Sleep Information Total Hours of Sleep: 3.5 Sleep Comments: pt ALEXI @ 0515 and thereafter. pt on q-15 minute checks Meal Information Percent Meal Consumed - Breakfast: 100 Percent Meal Consumed - Lunch: 100 Percent Meal Consumed - Dinner: 90 Nutrition Comment: Patient menu copied Subjective Subjective Patient was seen & assessed and interval progress reviewed with treatment team nursing and social work. Ended up going to evening self-awareness group but was able to participate more appropriately. Emotional during community meeting and recognizes her mood remains very labile. Was able to see her mom and daughter from the window while facetiming last evening. Met with her today alongside ISELA Cornejo. Today reports her mood is more "upset" which she attributes to feeling her trauma response was triggered by interactions with other patients and staff. Notes the abilify is helping stating "I feel like that ad with the wind up robot, I started abilify and I'm feeling happier and better, it's really helping me". She had some insight into how she responses to others in group and noted that her past trauma can impact how she responds to different situations. Physical Exam Psychiatric Orientation: alert and oriented x 3 Apperance: appropriately dressed and appropriately groomed Eye Contact: good eye contact Motor Behavior: no abnormal motor movements; no psychomotor agitation Speech: + pressured speech and + loud speech; + abnormal rate/rhythm/volume of speech (rapid) Affect: + labile affect (happy then irritable ) Mood: + depressed mood, + anxious mood and + irritable mood Thought Process: + tangential thought process and + flight of ideas Thought Content: + obsessions, + paranoid and + compulsions Suicidal Thoughts: denies suicidal thoughts Homicidal Thoughts: denies homicidal thoughts Hallucinations: no auditory hallucinations and no visual hallucinations Cognition: recent memory grossly intact, remote memory grossly intact and language grossly intact; + attention not intact Insight: + limited insight Judgement: + limited judgement Vital Signs (Past 24 Hours) Last Vital Signs Temp 36.6 C 12/13/21 06:37 Pulse 92 H 12/13/21 06:38 Resp 16 12/13/21 06:37 BP 123/84 12/13/21 06:38 Pulse Ox 98 12/07/21 17:11 Results & Data ([facility]) Current Inpatient Medications Current Inpatient Medications: Current Inpatient Medications Acetaminophen (Acetaminophen 325 Mg Tab) 650 mg PO Q4H PRN PRN Reason: Headache or Minor Fever Stop: 01/06/22 16:42 Al Hydrox/Mg Hydrox/Simethicone (Aluminum/Magnesium Susp 30 Ml Udc) 30 ml PO Q 4H PRN PRN Reason: GI Upset Stop: 01/06/22 16:42 Aripiprazole (Aripiprazole 5 Mg Tab) 7.5 mg PO QAM FATOU Stop: 01/12/22 08:59 Last Admin: 12/13/21 07:54 Dose: 7.5 mg Documented by: Bismuth Subsalicylate (Bismuth Subsalicylate Liqd 236 Ml) 15 ml PO PRN PRN PRN Reason: Loose Stool Stop: 01/06/22 16:42 Hydroxyzine HCl (Hydroxyzine Hcl 25 Mg Tab) 50 mg PO HSZ PRN PRN Reason: Insomnia Stop: 01/06/22 16:42 Last Admin: 12/08/21 20:53 Dose: 50 mg Documented by: Hydroxyzine HCl (Hydroxyzine Hcl 25 Mg Tab) 25 mg PO Q4H PRN PRN Reason: Anxiety Stop: 01/06/22 16:42 Last Admin: 12/12/21 12:41 Dose: 25 mg Documented by: Lorazepam (Lorazepam 1 Mg Tab) 2 mg PO ONCE PRN PRN Reason: Agitation Stop: 01/06/22 09:38 Last Admin: 12/07/21 19:13 Dose: 2 mg Documented by: Lorazepam (Lorazepam 0.5 Mg Tab) 0.5 mg PO BID PRN PRN Reason: Anxiety Stop: 01/07/22 14:05 Magnesium Hydroxide (Magnesium Hydroxide Susp 30 Ml Udc) 30 ml PO DAILY PRN PRN Reason: Constipation Stop: 01/06/22 16:42 Quetiapine Fumarate (Quetiapine Fumarate 100 Mg Tablet) 100 mg PO BID PRN PRN Reason: Agitation Stop: 01/06/22 20:59 Simethicone (Simethicone 80 Mg Chew) 80 mg PO Q6H PRN PRN Reason: gas Stop: 01/11/22 12:39 Last Admin: 12/12/21 15:00 Dose: 80 mg Documented by: Sodium Chloride (Sodium Chloride 0.65% Na Soln 45 Ml ([place])) 1 - 2 sprays NA PRN PRN PRN Reason: Nasal Dryness/Congestion Stop: 01/06/22 16:42 Mental Health & Subst Abuse Tx Therapist Name of Therapist: None Convention Services Manager Name of Convention Services Manager: None Post Discharge Appointments Primary Care Physician Name Of Family Doctor: LORI Kessler Primary Care Provider Appointment Comment: [address] [facility] Contact Information Discharge Discharge Address: [address] [place] [address], [place] [address]
[2021-12-13] MEDS: LORazepam 0.5 MG TAB PO PRN (12:00)
[2021-12-14] MEDS: ARIPiprazole 5 MG TAB PO SCH (08:56)
[2021-12-14] MEDS ORDERED: ARIPiprazole 5 MG TAB PO ONE (10:30)
[2021-12-14] MEDS: LORazepam 0.5 MG TAB PO PRN (10:37)
--- NOTE | 2021-12-14 12:33 | Psychiatric Progress Note ---
Date of Service December 14, 2021 Impression / Recommendations Impression The patient is a 41 year old with a history of OCD, BPAD, PTSD and MCKAYLA with panic attacks and agoraphobia who was admitted for increasing anxiety and paranoia. Diagnostically consistent with acute meet from BPAD as well as co- morbid conditions per history. The patient is deemed unstable and requires psychiatric hospitalization for diagnostic clarification, safety and stabilization, medication management and development of further coping skills. MNPR due to hx of meet/paranoia, exteme OCD issues related to bathroom, shared spaces. 12/14/21: As per Dr. Zamarripa above. Patient is improving, speech remains pressured but much more redirectible/less rigid (1) Bipolar 1 disorder with moderate meet: (2) Panic disorder/agoraphobia, sev agoraphobic avoidance/mod panic attack: (3) Suicidal ideations: (4) Generalized anxiety disorder with panic attacks: (5) Post traumatic stress disorder (PTSD): (6) OCD (obsessive compulsive disorder): 12/14/21: Titrate Abilify to 10 mg daily. Discussed prns for anxiety prior to distressing phone calls, particularly following discharge. 12/13/21: Continue with current medications and tx plan. 12/12/21: Increase abilify to 7.5 mg qhs. 12/11/21: Increase abilify to 5 mg qd. Continue with Vistaril and tx plan. 12/10/21: Continue with abilify and Vistaril. Continue with current tx plan. 12/09/21: provided with clock per her request. Continue current medications and tx plan. 12/08/21: The patient was admitted to the [facility] ([facility] mental health unit) on q15 min checks (behavioral with suicide precautions) for safety. The patient will participate in group, recreational, and milieu therapies and will be offered additional individual and family sessions as clinically appropriate. -fasting glucose and lipid panel -ativan 0.5 mg BID prn -abilify 2.5 mg qd -Vistaril 25mg q4h prn Inventory Assets Strengths: motivated to feel better, suportive family Needs: additional coping skills, outpatient providers, medication adjustments Risk Factors Assessment : Yes Do You Have Access To A Gun?: No Health Problems: No Mental Health Diagnoses: Yes Substance Use Disorders: No Previous Attempt: Yes Family History of Suicide: No Previous Psychiatric Hospitalization: Yes Hopelessness: Yes Protective Factors Assessment Responsible for Young Children: Yes Employed: No Stable Relationships: Yes Supportive Family: Yes Interval History Identifying Information JANIYA FERNANDEZ is a 41-year-old woman who currently lives with her parents in their home in [place], has a history of BPAD, OCD, PTSD, and MCKAYLA with panic attacks and agoraphobia and was admitted on 12/07/21 17:21 on a 201 voluntary commitment for increased anxiety, SI and concern for acute meet. Chief Complaint "I feel great on Abilify, I'm hoping to leave soon but I have no where to go" Review of Systems Sleep Information Total Hours of Sleep: 36.6 Sleep Comments: pt ALEXI @ 0515 and thereafter. pt on q-15 minute checks Meal Information Percent Meal Consumed - Breakfast: 90 Percent Meal Consumed - Lunch: 0 Percent Meal Consumed - Dinner: 100 Nutrition Comment: pt. upset; not able to eat at this time. Subjective Subjective Patient was seen & assessed and interval progress reviewed with treatment team. met with patient and social media marketing manager with rec therapist to review treatment plan. Expressed desire to increase Abilify 10 mg so doesn't have to split pills. She is very particular re: discharge planning and wants to make her own appointment with a PCP in [place]. Reviewed that my preference is that she makes calls here/confirm prior to any discharge. Also participated in family meeting with . Patient asked appropriate information about how to answer daughter's questions in a developmentally appropriate manner. Reviewed pros/cons of various housing options. Physical Exam Psychiatric Orientation: alert and oriented x 3 Apperance: appropriately dressed and appropriately groomed Eye Contact: good eye contact Motor Behavior: no abnormal motor movements; no psychomotor agitation Speech: + pressured speech; + abnormal rate/rhythm/volume of speech (rapid) Mood: + anxious mood Thought Process: + tangential thought process Suicidal Thoughts: denies suicidal thoughts Homicidal Thoughts: denies homicidal thoughts Hallucinations: no auditory hallucinations and no visual hallucinations Cognition: language grossly intact; + attention not intact Insight: + limited insight Judgement: + limited judgement Vital Signs (Past 24 Hours) Last Vital Signs Temp 36.7 C 12/14/21 06:00 Pulse 73 12/14/21 06:16 Resp 16 12/14/21 06:00 BP 109/71 12/14/21 06:16 Pulse Ox 98 12/07/21 17:11 Results & Data ([facility]) Current Inpatient Medications Current Inpatient Medications: Current Inpatient Medications Acetaminophen (Acetaminophen 325 Mg Tab) 650 mg PO Q4H PRN PRN Reason: Headache or Minor Fever Stop: 01/06/22 16:42 Al Hydrox/Mg Hydrox/Simethicone (Aluminum/Magnesium Susp 30 Ml Udc) 30 ml PO Q4H PRN PRN Reason: GI Upset Stop: 01/06/22 16:42 Aripiprazole (Aripiprazole 10 Mg Tab) 10 mg PO QAM FATOU Stop: 01/14/22 08:59 Bismuth Subsalicylate (Bismuth Subsalicylate Liqd 236 Ml) 15 ml PO PRN PRN PRN Reason: Loose Stool Stop: 01/06/22 16:42 Hydroxyzine HCl (Hydroxyzine Hcl 25 Mg Tab) 50 mg PO HSZ PRN PRN Reason: Insomnia Stop: 01/06/22 16:42 Last Admin: 12/08/21 20:53 Dose: 50 mg Documented by: Hydroxyzine HCl (Hydroxyzine Hcl 25 Mg Tab) 25 mg PO Q4H PRN PRN Reason: Anxiety Stop: 01/06/22 16:42 Last Admin: 12/12/21 12:41 Dose: 25 mg Documented by: Lorazepam (Lorazepam 1 Mg Tab) 2 mg PO ONCE PRN PRN Reason: Agitation Stop: 01/06/22 09:38 Last Admin: 12/07/21 19:13 Dose: 2 mg Documented by: Lorazepam (Lorazepam 0.5 Mg Tab) 0.5 mg PO BID PRN PRN Reason: Anxiety Stop: 01/07/22 14:05 Last Admin: 12/14/21 10:37 Dose: 0.5 mg Documented by: Magnesium Hydroxide (Magnesium Hydroxide Susp 30 Ml Udc) 30 ml PO DAILY PRN PRN Reason: Constipation Stop: 01/06/22 16:42 Quetiapine Fumarate (Quetiapine Fumarate 100 Mg Tablet) 100 mg PO BID PRN PRN Reason: Agitation Stop: 01/06/22 20:59 Simethicone (Simethicone 80 Mg Chew) 80 mg PO Q6H PRN PRN Reason: gas Stop: 01/11/22 12:39 Last Admin: 12/12/21 15:00 Dose: 80 mg Documented by: Sodium Chloride (Sodium Chloride 0.65% Na Soln 45 Ml ([place])) 1 - 2 sprays NA PRN PRN PRN Reason: Nasal Dryness/Congestion Stop: 01/06/22 16:42 Mental Health & Subst Abuse Tx Therapist Name of Therapist: None Sfdc Consultant Name of Sfdc Consultant: Base [employer] Phone Number for Sfdc Consultant: [phone] Post Discharge Appointments Primary Care Physician Name Of Family Doctor: LORI Kessler (will see Tia, HYPOID GEAR GENERATOR) Primary Care Date of Appointment with PCP: 01/08/22 Time of Appointment with PCP: 1:30 PM Provider Appointment Comment: [address] [facility] Contact Information Discharge Discharge Address: [address] [place] [address], [place] [phone]
[2021-12-15] MEDS: ARIPiprazole 10 MG TAB PO SCH (07:40)
--- NOTE | 2021-12-15 12:48 | Psychiatric Progress Note ---
Date of Service December 15, 2021 Impression / Recommendations Impression The patient is a 41 year old with a history of OCD, BPAD, PTSD and MCKAYLA with panic attacks and agoraphobia who was admitted for increasing anxiety and paranoia. Diagnostically consistent with acute meet from BPAD as well as co- morbid conditions per history. The patient is deemed unstable and requires psychiatric hospitalization for diagnostic clarification, safety and stabilization, medication management and development of further coping skills. 12/15/21: improving (1) Bipolar 1 disorder with moderate meet: (2) Panic disorder/agoraphobia, sev agoraphobic avoidance/mod panic attack: (3) Suicidal ideations: (4) Generalized anxiety disorder with panic attacks: (5) Post traumatic stress disorder (PTSD): (6) OCD (obsessive compulsive disorder): 12/15/21: continue current medications and treatment plan, safety planning around housing transition. 12/14/21: Titrate Abilify to 10 mg daily. Discussed prns for anxiety prior to distressing phone calls, particularly following discharge. 12/13/21: Continue with current medications and tx plan. 12/12/21: Increase abilify to 7.5 mg qhs. 12/11/21: Increase abilify to 5 mg qd. Continue with Vistaril and tx plan. 12/10/21: Continue with abilify and Vistaril. Continue with current tx plan. 12/09/21: provided with clock per her request. Continue current medications and tx plan. 12/08/21: The patient was admitted to the [facility] on q15 min checks (behavioral with suicide precautions) for safety. The patient will participate in group, recreational, and milieu therapies and will be offered additional individual and family sessions as clinically appropriate. -fasting glucose and lipid panel -ativan 0.5 mg BID prn -abilify 2.5 mg qd -Vistaril 25mg q4h prn Inventory Assets Strengths: motivated to feel better, suportive family Needs: additional coping skills, outpatient providers, medication adjustments Risk Factors Assessment : Yes Do You Have Access To A Gun?: No Health Problems: No Mental Health Diagnoses: Yes Substance Use Disorders: No Previous Attempt: Yes Family History of Suicide: No Previous Psychiatric Hospitalization: Yes Hopelessness: Yes Protective Factors Assessment Responsible for Young Children: Yes Employed: No Stable Relationships: Yes Supportive Family: Yes Interval History Identifying Information JANIYA FERNANDEZ is a 41-year-old woman who currently lives with her parents in their home in [place], has a history of BPAD, OCD, PTSD, and MCKAYLA with panic attacks and agoraphobia and was admitted on 12/07/21 17:21 on a 201 voluntary commitment for increased anxiety, SI and concern for acute meet. Chief Complaint "I'm working on apartment applications, I still really like this medicine". Review of Systems Sleep Information Total Hours of Sleep: 6 Sleep Comments: pt woke up at 0430. Meal Information Percent Meal Consumed - Breakfast: 100 Percent Meal Consumed - Lunch: 100 Percent Meal Consumed - Dinner: 100 Nutrition Comment: pt. upset; not able to eat at this time. Subjective Subjective Patient was seen & assessed and interval progress reviewed with nursing and social work. She is anxious re: possible transition to [place], no local options for funding around housing as has not yet established residency (2 months required). She is adamant that she does not want to return to [place] despite having housing vouchers there. Speech is less pressured. Physical Exam Psychiatric Orientation: alert and oriented x 3 Apperance: appropriately dressed and appropriately groomed Eye Contact: good eye contact Motor Behavior: no abnormal motor movements; no psychomotor agitation Speech: no pressured speech Affect: euthymic affect Mood: + anxious mood Thought Process: linear/logical thought process Suicidal Thoughts: denies suicidal thoughts Homicidal Thoughts: denies homicidal thoughts Hallucinations: no auditory hallucinations and no visual hallucinations Cognition: attention grossly intact and language grossly intact Insight: + limited insight Judgement: + limited judgement Vital Signs (Past 24 Hours) Last Vital Signs Temp 36.8 C 12/15/21 06:39 Pulse 76 12/15/21 06:39 Resp 18 12/15/21 06:39 BP 94/63 L 12/15/21 06:39 Pulse Ox 98 12/07/21 17:11 Results & Data ([facility]) Current Inpatient Medications Current Inpatient Medications: Current Inpatient Medications Acetaminophen (Acetaminophen 325 Mg Tab) 650 mg PO Q4H PRN PRN Reason: Headache or Minor Fever Stop: 01/06/22 16:42 Al Hydrox/Mg Hydrox/Simethicone (Aluminum/Magnesium Susp 30 Ml Udc) 30 ml PO Q4H PRN PRN Reason: GI Upset Stop: 01/06/22 16:42 Aripiprazole (Aripiprazole 10 Mg Tab) 10 mg PO QAM FATOU Stop: 01/14/22 08:59 Last Admin: 12/15/21 07:40 Dose: 10 mg Documented by: Bismuth Subsalicylate (Bismuth Subsalicylate Liqd 236 Ml) 15 ml PO PRN PRN PRN Reason: Loose Stool Stop: 01/06/22 16:42 Hydroxyzine HCl (Hydroxyzine Hcl 25 Mg Tab) 50 mg PO HSZ PRN PRN Reason: Insomnia Stop: 01/06/22 16:42 Last Admin: 12/08/21 20:53 Dose: 50 mg Documented by: Hydroxyzine HCl (Hydroxyzine Hcl 25 Mg Tab) 25 mg PO Q4H PRN PRN Reason: Anxiety Stop: 01/06/22 16:42 Last Admin: 12/12/21 12:41 Dose: 25 mg Documented by: Lorazepam (Lorazepam 1 Mg Tab) 2 mg PO ONCE PRN PRN Reason: Agitation Stop: 01/06/22 09:38 Last Admin: 12/07/21 19:13 Dose: 2 mg Documented by: Lorazepam (Lorazepam 0.5 Mg Tab) 0.5 mg PO BID PRN PRN Reason: Anxiety Stop: 01/07/22 14:05 Last Admin: 12/14/21 10:37 Dose: 0.5 mg Documented by: Magnesium Hydroxide (Magnesium Hydroxide Susp 30 Ml Udc) 30 ml PO DAILY PRN PRN Reason: Constipation Stop: 01/06/22 16:42 Quetiapine Fumarate (Quetiapine Fumarate 100 Mg Tablet) 100 mg PO BID PRN PRN Reason: Agitation Stop: 01/06/22 20:59 Simethicone (Simethicone 80 Mg Chew) 80 mg PO Q6H PRN PRN Reason: gas Stop: 01/11/22 12:39 Last Admin: 12/12/21 15:00 Dose: 80 mg Documented by: Sodium Chloride (Sodium Chloride 0.65% Na Soln 45 Ml (Imperial)) 1 - 2 sprays NA PRN PRN PRN Reason: Nasal Dryness/Congestion Stop: 01/06/22 16:42 Mental Health & Subst Abuse Tx Therapist Name of Therapist: None Display Designer Name of Display Designer: [employer] Phone Number for Display Designer: [phone] Post Discharge Appointments Primary Care Physician Name Of Family Doctor: LORI Kessler (will see Sophia BOBBIN DRIER) Primary Care Date of Appointment with PCP: 01/08/22 Time of Appointment with PCP: 1:30 PM Provider Appointment Comment: [facility] Contact Information Discharge Discharge Address: [address] [place] [address], [place] [address]
[2021-12-15] MEDS: hydrOXYzine HCl 25 MG TAB PO PRN (21:03)
[2021-12-16] MEDS: hydrOXYzine HCl 25 MG TAB PO PRN (02:38)
[2021-12-16] MEDS: ARIPiprazole 10 MG TAB PO SCH (07:45)
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
== END 2021-12-16 12:15 | disposition home or self-care (01) | DRG 885 ==
LOC: ED 08:47 → 3S 17:11 → SUATTDRO 17:21

== ENCOUNTER 2021-12-19 13:02 | Inpatient (IN) ==
[2021-12-19 14:18] LABS: Basophils # (auto) 0.03 K/uL (0-0.2); Basophils % (auto) 0.3 %; Eosinophils # (auto) 0.05 K/uL (0-0.5); Eosinophils % (auto) 0.6 %; Hematocrit (blood only) 40.8 % (37-47); Hemoglobin 13.4 g/dL (12.0-16.0); Immature Granulocytes # (auto) 0.01 K/uL (0.00-0.02); Immature Granulocytes % (auto) 0.1 %; Lymphocytes # (auto) 1.48 K/uL (1.2-3.4); Lymphocytes % (auto) 17.1 %; Mean Corpuscular Hemoglobin 29.5 pg (25-34); Mean Corpuscular Hgb Conc 32.8 g/dL (32-36); Mean Corpuscular Volume 89.9 fL (80-100); Mean Platelet Volume 11.6 fL (7.4-10.4); Monocytes % (auto) 8.1 %; Neutrophils % (auto) 73.8 %; Platelet Count 363 K/uL (130-400); RDW Coefficient of Variation 14.3 % (11.5-14.5); RDW Standard Deviation 46.7 fL (36.4-46.3); Red Blood Count 4.54 M/uL (4.2-5.4); White Blood Count 8.67 K/uL (4.8-10.8)
[2021-12-19 14:22] LABS: Acetaminophen < 3 ug/ml (10-30); Salicylate < 3.0 mg/dl (3.0-30)
[2021-12-19 14:23] LABS: Appearance Urine Clear (Clear); Bacteria Urine Automated 1+ (Negative); Bilirubin Urine Negative (Negative); Blood Urine Negative (Negative); Color Urine Dark Yellow; Epithelial Cell Urine Auto >30 /lpf (0-5); Glucose Urine UA Negative (Negative); Ketones Urine Trace (Negative); Leukocyte Esterase Urine Trace (Negative); Nitrite Urine Negative (Negative); Protein Urine Trace (Negative); RBC Urine Automated 0-4 /hpf (0-4); Specific Gravity Urine 1.028 (1.000-1.030); Urobilinogen Urine Negative (Negative)
[2021-12-19 14:29] LABS: Alanine Aminotransferase 8 U/L (7-52); Albumin Globulin Ratio 1.5 (0.9-2); Albumin Level 4.4 gm/dl (3.4-5.0); Alkaline Phosphatase 63 U/L (34-104); Anion Gap 6 (3-11); Aspartate Aminotransferase 14 U/L (13-39); BUN Creatinine Ratio 13.9 (10-20); Bilirubin,Total 1.3 mg/dl (0.2-1.0); Blood Urea Nitrogen 10 mg/dl (6-23); Carbon Dioxide 25 mmol/L (21-32); Chloride 108 mmol/L (98-107); Est GFR (African American) 119.7 ml/min; Est GFR (Non-African American) 103.3 ml/min; Glucose 101 mg/dl (70-99(Fasting)); Potassium 3.1 mmol/L (3.5-5.1); Sodium 139 mmol/L (136-145); Total Protein 7.4 gm/dl (6.0-8.3)
[2021-12-19 14:38] LABS: Pregnancy Test, Urine Negative (Negative)
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
[2021-12-19 14:49] LABS: Amphetamines+Metham, Urine Neg (Neg); Barbiturates, Urine Neg (Neg); Benzodiazepine, Urine Neg (Neg); Cocaine, Urine Neg (Neg); MDMA (Ecstacy), Urine Neg (Neg); Methadone, Urine Neg (Neg); Opiate, Urine Neg (Neg); Phencyclidine, Urine Neg (Neg)
[2021-12-19] MEDS ORDERED: POTASSIUM CHLORIDE CRTAB 20 MEQ TABCR PO STA (17:10)
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
[2021-12-19] MEDS ORDERED: POTASSIUM CHLORIDE CRTAB 20 MEQ TABCR PO SCH (21:00)
[2021-12-19] MEDS ORDERED: POLYETHYLENE (MIRALAX) 17 GM PACK PO PRN (22:56)
[2021-12-19] MEDS ORDERED: hydrOXYzine HCl 25 MG TAB PO PRN (22:56)
[2021-12-19] MEDS ORDERED: ARIPiprazole 5 MG TAB PO ONE (22:56)
[2021-12-19] MEDS ORDERED: LORazepam 0.5 MG TAB PO PRN (22:56)
[2021-12-19] MEDS ORDERED: ACETAMINOPHEN 325 MG TAB PO PRN (22:56)
[2021-12-19] MEDS ORDERED: PATIENT'S HEIGHT AND/OR WEIGHT NEEDED SCH (23:00)
[2021-12-19] MEDS: ENOXAPARIN INJ 40 MG/0.4 ML SYR SQ SCH (23:37)
[2021-12-20] MEDS ORDERED: SIMETHICONE 80 MG CHEW PO STA (01:36)
[2021-12-20 07:29] LABS: Basophils # (auto) 0.03 K/uL (0-0.2); Basophils % (auto) 0.5 %; Eosinophils # (auto) 0.04 K/uL (0-0.5); Eosinophils % (auto) 0.7 %; Hematocrit (blood only) 38.8 % (37-47); Hemoglobin 12.7 g/dL (12.0-16.0); Lymphocytes # (auto) 1.69 K/uL (1.2-3.4); Lymphocytes % (auto) 29.5 %; Mean Corpuscular Hemoglobin 29.4 pg (25-34); Mean Corpuscular Hgb Conc 32.7 g/dL (32-36); Mean Corpuscular Volume 89.8 fL (80-100); Mean Platelet Volume 11.3 fL (7.4-10.4); Monocytes # (auto) 0.86 K/uL (0.11-0.59); Neutrophils # (auto) 3.11 K/uL (1.4-6.5); Neutrophils % (auto) 54.3 %; Platelet Count 302 K/uL (130-400); RDW Coefficient of Variation 14.4 % (11.5-14.5); RDW Standard Deviation 47.3 fL (36.4-46.3); Red Blood Count 4.32 M/uL (4.2-5.4); White Blood Count 5.73 K/uL (4.8-10.8)
[2021-12-20 08:48] LABS: BUN Creatinine Ratio 21.8 (10-20); C Reactive Protein 0.55 mg/dl (0-0.5); Calcium 8.9 mg/dl (8.5-10.1); Creatinine Clr Calc Pharmacy 144.1 ml/min; Est GFR (African American) 134.1 ml/min; Est GFR (Non-African American) 115.7 ml/min; Potassium 4.1 mmol/L (3.5-5.1)
[2021-12-20] MEDS: ARIPiprazole 15 MG TAB PO SCH (09:58)
[2021-12-20] MEDS: ENOXAPARIN INJ 40 MG/0.4 ML SYR SQ SCH ×2 (10:16→22:40)
[2021-12-20 14:17] LABS: Influenza A virus by PCR Negative (Neg); Influenza B virus by PCR Negative (Neg); RSV by PCR Negative (Neg)
--- NOTE | 2021-12-20 14:24 | Hospitalist Progress Note ---
Date of Service December 20, 2021 Assessment & Plan (1) COVID-19: Plan: COVID-19 positive on admission Will admit to medical service with psychiatry on consult 100% SPO2 on room air, no hypoxia. Minimal cough Steroids, remdesivir not indicated at this time CRP trended, 0.55/20 COVID isolation Patient is vaccinated with booster No leukocytosis, no signs of superimposed bacterial pneumonia Follow clinically Creatinine normal Some sinus congestion and sore throat. We will add Flonase for congestion and ear discomfort (2) Hypokalemia: Plan: Magnesium 1.8, potassium 3.1 on admission, repleted (3) Panic disorder/agoraphobia, sev agoraphobic avoidance/mod panic attack: Plan: Patient with extensive history of bipolar 1, panic, agoraphobia, and PTSD Reviewed with psychiatry. Will admit to medicine and consult Continue Abilify 15 mg daily Continue lorazepam and hydroxyzine as needed discussed with psychiatry. Patient does have chronic suicidality, but is without acute crisis at this time and good insight and able to use coping strategies. We will continue one-to-one, but discontinue suicide precautions so that patient may use the bathroom/shower without direct observation given her trauma history. TSH normal on admission Placement is most acute challenge at this time. Is still a resident of [facility] but does not wish to return there on housing vouchers. Hotel was with poor hygiene which exacerbated patient's underlying issues and was a poor therapeutic environment for her. Psych case management to coordinate with case management to look into discharge options. (4) Post traumatic stress disorder (PTSD): Plan: As noted (5) Suicidal ideations: Plan: As noted (6) Anxiety: Plan: As noted (7) Bipolar 1 disorder with moderate meet: Plan: As noted (8) Panic disorder: Plan: As noted Plan: DVT prophylaxis: Lovenox CODE STATUS: Full code Disposition medical surgical, COVID isolation Diet: Regular Admission and Anticipated Discharge Date Admission Date: December 19, 2021 Subjective Seen at the bedside. Patient does endorse some sore throat, and ear congestion/discomfort. No purulence/drainage. No fever/chills/sweats overnight Does report history of concern for vaginal yeast infections, is not sure if she could have 1 now and has had Monistat in the past. Is on QT prolonging medications, and does not wish to have an EKG to check for QT due to history of trauma Denies chest pain, chest pressure, palpitations. Notes her heart rate does go up when she gets anxious. Denies syncope/presyncope No hallucinations today. Review of Systems Review of Systems: All systems reviewed & are unremarkable except as noted in Subjective Physical Exam Physical Exam: Some components of the exam deferred at patient request due to history of PTSD/OCD/agoraphobia General: A&Ox3. Speech fluent, goal-directed occasionally circumferential thought process today. Speech somewhat rapid. Mood anxious, affect congruent. Not responding to internal stimuli. HEENT: Atraumatic, normocephalic. Visual acuity and hearing grossly intact. Pulm: Symmetrical chest rise. No increase in work of breathing. No respiratory distress. Cardiac: Radial palpation with pulse approximately 80, regular Extremities: Moving all extremities equally. Results & Data Results & Data ([facility]) Vital Signs (Past 12 Hours) Vital Signs Temp Pulse Resp BP Pulse Ox 12/20/21 10:19 36.6 C 115 H 16 116/79 96 PG Care Time/CCT Total # of Minutes Spent Total Time Spent with Patient: Total time spent is greater than 50% in coordination of care (as documented) at patient's floor/unit and/or counseling patient: Coding Level of Care Code 85547 Subseq Hosp Care Lvl 2 Diagnoses COVID-19 U07.1 Hypokalemia E87.6 Panic disorder/agoraphobia, sev agoraphobic avoidance/mod panic attack F40.01 Post traumatic stress disorder (PTSD) F43.10 Suicidal ideations R45.851 Anxiety F41.9 Bipolar 1 disorder with moderate meet F31.12 Panic disorder F41.0
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
[2021-12-20 14:32] LABS: SARS CoV2 RNA(COVID-19) InHosp POSITIVE (Negative)
[2021-12-20] MEDS: SIMETHICONE 80 MG CHEW PO PRN (19:34)
[2021-12-20] MEDS: FLUTICASONE PROPIONATE NA SPR 16 GM BTL PRN (19:34)
[2021-12-21 08:29] LABS: Anion Gap 7 (3-11); Blood Urea Nitrogen 12 mg/dl (6-23); C Reactive Protein < 0.50 mg/dl (0-0.5); Calcium 9.2 mg/dl (8.5-10.1); Carbon Dioxide 26 mmol/L (21-32); Chloride 106 mmol/L (98-107); Creatinine Clr Calc Pharmacy 125.8 ml/min; Est GFR (African American) 128.2 ml/min; Est GFR (Non-African American) 110.6 ml/min; Glucose 86 mg/dl (70-99(Fasting)); Potassium 3.8 mmol/L (3.5-5.1); Sodium 139 mmol/L (136-145)
[2021-12-21] MEDS: FLUTICASONE PROPIONATE NA SPR 16 GM BTL PRN (08:34)
[2021-12-21] MEDS: ENOXAPARIN INJ 40 MG/0.4 ML SYR SQ SCH ×2 (08:53→20:38)
[2021-12-21] MEDS ORDERED: hydrOXYzine HCl 25 MG TAB PO PRN (15:11)
[2021-12-21] MEDS ORDERED: ARIPiprazole 10 MG TAB PO ONE (15:15)
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
[2021-12-21] MEDS: ARIPiprazole 15 MG TAB PO SCH (15:36)
--- NOTE | 2021-12-21 17:50 | Hospitalist Progress Note ---
Date of Service December 21, 2021 Assessment & Plan (1) COVID-19: Plan: COVID-19 positive on admission Will admit to medical service with psychiatry on consult 100% SPO2 on room air, no hypoxia. Minimal cough Steroids, remdesivir not indicated at this time CRP trended, 0.55/20 COVID isolation Patient is vaccinated with booster No leukocytosis, no signs of superimposed bacterial pneumonia Follow clinically Creatinine normal Has congestion improved ear pain resolved with Flonase. (2) Hypokalemia: Plan: Magnesium 1.8, potassium 3.1 on admission, repleted (3) Panic disorder/agoraphobia, sev agoraphobic avoidance/mod panic attack: Plan: Patient with extensive history of bipolar 1, panic, agoraphobia, and PTSD Reviewed with psychiatry. Will admit to medicine and consult Continue lorazepam and hydroxyzine as needed discussed with psychiatry. Patient does have chronic suicidality, but is without acute crisis at this time and good insight and able to use coping strategies. We will continue one-to-one, but discontinue suicide precautions so that patient may use the bathroom/shower without direct observation given her trauma history. TSH normal on admission Placement is most acute challenge at this time. Is still a resident of [facility] but does not wish to return there on housing vouchers. Hotel was with poor hygiene which exacerbated patient's underlying issues and was a poor therapeutic environment for her. Psych case management to coordinate with case management to look into discharge options. 12/21 SHe is on phone making calls, patient reports trying to find placement options for leaving the hospital. Has discussed with case management and psych case management about various options. SHe is not willing to have family assistance/mother contacted for help. Is looking into various options, would like to engage with [facility] [place] [facility]. Case management is following. Due to patient concern for worsening agitation Abilify decreased to 10 mg daily, did see and add that reported that he can cause renal restlessness which he identified with but also recognizes that this may be due to her underlying condition for which the Abilify actually treats. She ate psychiatry assistance, if patient continues to have symptoms or concerns regarding to Abilify can considering switch to Latuda. (4) Post traumatic stress disorder (PTSD): Plan: As noted (5) Suicidal ideations: Plan: As noted (6) Anxiety: Plan: As noted (7) Bipolar 1 disorder with moderate meet: Plan: As noted (8) Panic disorder: Plan: As noted Plan: DVT prophylaxis: Lovenox CODE STATUS: Full code Disposition medical surgical, COVID isolation Diet: Regular Admission and Anticipated Discharge Date Admission Date: December 19, 2021 Subjective Seen at bedside. SHe is on phone making calls, patient reports trying to find placement options for leaving the hospital. Has discussed with case management and psych case management about various options. SHe is not willing to have family assistance/mother contacted for help. Is looking into various options, would [facility] Case management is following. Otherwise she feels okay. Sore throat sinus congestion and ear pain have greatly improved with Flonase. No ear pain or pressure today. Reports she has a slightly sore throat and sometimes a dry cough, but otherwise no shortness of breath difficulty breathing sputum production lightheadedness dizziness. She reports that she thinks her heart rate goes up quick when she gets excited, but denies palpitations/[place]/presyncope. Review of Systems Review of Systems: All systems reviewed & are unremarkable except as noted in Subjective Physical Exam Physical Exam: Some components of the exam deferred at patient request due to history of PTSD/OCD/agoraphobia General: A&Ox3. Speech fluent, goal-directed occasionally circumferential thought process today. Speech to needs to be somewhat rapid. Mood anxious, affect congruent. Not responding to internal stimuli. No psychomotor agitation today. HEENT: Atraumatic, normocephalic. Visual acuity and hearing grossly intact. Pulm: Symmetrical chest rise. No increase in work of breathing. No respiratory distress. Extremities: Moving all extremities equally. Results & Data Results & Data ([facility]) Vital Signs (Past 12 Hours) Vital Signs Temp Pulse Resp BP Pulse Ox 12/21/21 08:30 36.4 C L 119 H 16 113/79 99 PG Care Time/CCT Total # of Minutes Spent Total Time Spent with Patient: Total time spent is greater than 50% in coordination of care (as documented) at patient's floor/unit and/or counseling patient: Coding Level of Care Code 83824 Subseq Hosp Care Lvl 2 Diagnoses COVID-19 U07.1 Hypokalemia E87.6 Panic disorder/agoraphobia, sev agoraphobic avoidance/mod panic attack F40.01 Post traumatic stress disorder (PTSD) F43.10 Suicidal ideations R45.851 Anxiety F41.9 Bipolar 1 disorder with moderate meet F31.12 Panic disorder F41.0
[2021-12-22] MEDS: hydrOXYzine HCl 25 MG TAB PO PRN (00:08)
[2021-12-22] MEDS: SIMETHICONE 80 MG CHEW PO PRN (05:33)
[2021-12-22] MEDS: ENOXAPARIN INJ 40 MG/0.4 ML SYR SQ SCH ×2 (07:12→20:16)
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
[2021-12-22] MEDS: ARIPiprazole 10 MG TAB PO SCH (11:28)
--- NOTE | 2021-12-22 14:22 | Hospitalist Progress Note ---
Date of Service December 22, 2021 Assessment & Plan (1) COVID-19: Plan: COVID-19 positive on admission Will admit to medical service with psychiatry on consult 100% SPO2 on room air, no hypoxia. Minimal cough Steroids, remdesivir not indicated at this time CRP trended, 0.55/20 COVID isolation Patient is vaccinated with booster No leukocytosis, no signs of superimposed bacterial pneumonia Follow clinically Creatinine normal - May repeat COVID PCR 12/23, will need 2x tests 24 hours apart if to be moved to [facility] (2) Hypokalemia: Plan: Magnesium 1.8, potassium 3.1 on admission, repleted (3) Panic disorder/agoraphobia, sev agoraphobic avoidance/mod panic attack: Plan: Patient with extensive history of bipolar 1, panic, agoraphobia, and PTSD Reviewed with psychiatry. Will admit to medicine and consult Continue lorazepam and hydroxyzine as needed discussed with psychiatry. Patient does have chronic suicidality, but is without acute crisis at this time and good insight and able to use coping strategies. We will continue one-to-one, but discontinue suicide precautions so that patient may use the bathroom/shower without direct observation given her trauma history. TSH normal on admission Placement is most acute challenge at this time. Is still a resident of [facility] but does not wish to return there on housing vouchers. Hotel was with poor hygiene which exacerbated patient's underlying issues and was a poor therapeutic environment for her. Psych case management to coordinate with case management to look into discharge options. - Continuing Abilify for now but is considering addition of propranolol versus switch to Latuda if agitation is more suggestive of akathisia. Continuing to look at placement options, will require 2 consecutive PCR negative tests if moved to [facility] patient is continuing to look at placement options outside of the hospital. Psych and hospital case management following (4) Post traumatic stress disorder (PTSD): Plan: As noted (5) Suicidal ideations: Plan: As noted (6) Anxiety: Plan: As noted (7) Bipolar 1 disorder with moderate meet: Plan: As noted (8) Panic disorder: Plan: As noted Plan: DVT prophylaxis: Lovenox CODE STATUS: Full code Disposition medical surgical, COVID isolation Diet: Regular Admission and Anticipated Discharge Date Admission Date: December 19, 2021 Subjective Seen at bedside. Doing well. Was fatigued and restless overnight, but feels this is a little better this afternoon although notes that hydroxyzine is a little sedating. Has discussed with psych and will follow with [facility] for now but is considering addition of propranolol versus switch to Latuda if agitation is more suggestive of akathisia. Breathing is okay, denies shortness of breath and cough/sore throat is improving no resurgence of ear pain. Continuing to look at placement options, will require 2 consecutive PCR negative tests if moved to [facility] patient is continuing to look at placement options outside of the hospital. Psych and hospital case management following Review of Systems Review of Systems: All systems reviewed & are unremarkable except as noted in Subjective Physical Exam Physical Exam: Some components of the exam deferred at patient request due to history of PTSD/OCD/agoraphobia General: A&Ox3. Speech fluent, goal-directed occasionally circumferential thought process continues. Not responding to internal stimuli. No psychomotor agitation today. HEENT: Atraumatic, normocephalic. Visual acuity and hearing grossly intact. Pulm: Symmetrical chest rise. No increase in work of breathing. No respiratory distress. Extremities: Moving all extremities equally. Results & Data Results & Data ([facility]) Vital Signs (Past 12 Hours) Vital Signs Temp Pulse Resp BP Pulse Ox 12/22/21 07:13 37.0 C 90 18 126/94 100 12/22/21 05:56 36.7 C PG Care Time/CCT Total # of Minutes Spent Total Time Spent with Patient: Total time spent is greater than 50% in coordination of care (as documented) at patient's floor/unit and/or counseling patient: Coding Level of Care Code 42361 Subseq Hosp Care Lvl 1 Diagnoses COVID-19 U07.1 Hypokalemia E87.6 Panic disorder/agoraphobia, sev agoraphobic avoidance/mod panic attack F40.01 Post traumatic stress disorder (PTSD) F43.10 Suicidal ideations R45.851 Anxiety F41.9 Bipolar 1 disorder with moderate meet F31.12 Panic disorder F41.0
[2021-12-23] MEDS: ENOXAPARIN INJ 40 MG/0.4 ML SYR SQ SCH ×2 (08:24→20:00)
[2021-12-23] MEDS: ARIPiprazole 10 MG TAB PO SCH (08:39)
[2021-12-23] MEDS: hydrOXYzine HCl 25 MG TAB PO PRN (12:29)
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
[2021-12-23] MEDS: SIMETHICONE 80 MG CHEW PO PRN (14:07)
[2021-12-23] MEDS: MULTIVITAMIN CHEWABLE TAB PO SCH (14:59)
--- NOTE | 2021-12-23 16:15 | Hospitalist Progress Note ---
Date of Service December 23, 2021 Assessment & Plan (1) COVID-19: Plan: COVID-19 positive on admission Will admit to medical service with psychiatry on consult 100% SPO2 on room air, no hypoxia. Minimal cough Steroids, remdesivir not indicated at this time CRP trended, 0.55/20 COVID isolation Patient is vaccinated with booster No leukocytosis, no signs of superimposed bacterial pneumonia Follow clinically Creatinine normal -Stable, nearly asymptomatic from COVID standpoint. Repeat PCR pending, will need to test 24 hours apart to move to U (2) Hypokalemia: Plan: Magnesium 1.8, potassium 3.1 on admission, repleted (3) Panic disorder/agoraphobia, sev agoraphobic avoidance/mod panic attack: Plan: Patient with extensive history of bipolar 1, panic, agoraphobia, and PTSD Reviewed with psychiatry. Will admit to medicine and consult Continue lorazepam and hydroxyzine as needed discussed with psychiatry. Patient does have chronic suicidality, but is without acute crisis at this time and good insight and able to use coping strategies. We will continue one-to-one, but discontinue suicide precautions so that patient may use the bathroom/shower without direct observation given her trauma history. TSH normal on admission Placement is most acute challenge at this time. Is still a resident of [facility] but does not wish to return there on housing vouchers. Hotel was with poor hygiene which exacerbated patient's underlying issues and was a poor therapeutic environment for her. Psych case management to coordinate with case management to look into discharge options. - Continuing Abilify for now but i may consider addition of propranolol versus switch to Latuda if agitation is more suggestive of akathisia. Continuing to look at placement options, will require 2 consecutive PCR negative tests if moved to [facility] which patient would likely benefit from at this time. Discussed with psych, appreciate assistance (4) Post traumatic stress disorder (PTSD): Plan: As noted (5) Suicidal ideations: Plan: As noted (6) Anxiety: Plan: As noted (7) Bipolar 1 disorder with moderate meet: Plan: As noted (8) Panic disorder: Plan: As noted Plan: DVT prophylaxis: Lovenox CODE STATUS: Full code Disposition medical surgical, COVID isolation Diet: Regular Admission and Anticipated Discharge Date Admission Date: December 19, 2021 Subjective Seen at bedside. No shortness of breath, difficulty breathing, lightheadedness, dizziness today. Does continue to be anxious, feels she is out of her routine and has difficulty with meals and bowel movements being out of her normal habit. Some increased anxiety today. Has discussed with psych. Is awaiting moved to [facility], will need to negative COVID test 24 hours apart before this can be done. Not found outpatient accommodations at this time, did review case with Dr. Oconnor who agrees patient would benefit from [facility] stay once able to be transferred. Review of Systems Review of Systems: All systems reviewed & are unremarkable except as noted in Subjective Physical Exam Physical Exam: Some components of the exam deferred at patient request due to history of PTSD/OCD/agoraphobia General: A&Ox3. Speech fluent, mostly goal-directed. Affect somewhat anxious not responding to internal stimuli. No psychomotor agitation today. HEENT: Atraumatic, normocephalic. Visual acuity and hearing grossly intact. Pulm: Symmetrical chest rise. No increase in work of breathing. No respiratory distress. Cardiac: Regular rate and rhythm to radial palpation Extremities: Moving all extremities equally. Results & Data Results & Data ([facility]) Vital Signs (Past 12 Hours) Vital Signs Pulse Resp BP Pulse Ox 12/23/21 07:19 87 16 137/81 99 PG Care Time/CCT Total # of Minutes Spent Total Time Spent with Patient: Total time spent is greater than 50% in coordination of care (as documented) at patient's floor/unit and/or counseling patient: Coding Level of Care Code 48543 Subseq Hosp Care Lvl 2 Diagnoses COVID-19 U07.1 Hypokalemia E87.6 Panic disorder/agoraphobia, sev agoraphobic avoidance/mod panic attack F40.01 Post traumatic stress disorder (PTSD) F43.10 Suicidal ideations R45.851 Anxiety F41.9 Bipolar 1 disorder with moderate meet F31.12 Panic disorder F41.0
[2021-12-23 16:17] LABS: Influenza A virus by PCR Negative (Neg); Influenza B virus by PCR Negative (Neg); RSV by PCR Negative (Neg)
[2021-12-23 16:22] LABS: SARS CoV2 RNA(COVID-19) InHosp POSITIVE (Negative)
[2021-12-24] MEDS: ARIPiprazole 10 MG TAB PO SCH (08:48)
[2021-12-24] MEDS: MULTIVITAMIN CHEWABLE TAB PO SCH (08:49)
[2021-12-24] MEDS: ENOXAPARIN INJ 40 MG/0.4 ML SYR SQ SCH ×2 (08:50→20:53)
[2021-12-24] MEDS: FLUTICASONE PROPIONATE NA SPR 16 GM BTL PRN (11:05)
--- NOTE | 2021-12-24 11:16 | Hospitalist Progress Note ---
Date of Service December 24, 2021 Assessment & Plan (1) COVID-19: Plan: COVID-19 positive on admission Will admit to medical service with psychiatry on consult 100% SPO2 on room air, no hypoxia. Minimal cough Steroids, remdesivir not indicated at this time CRP trended, 0.55/20 COVID isolation Patient is vaccinated with booster No leukocytosis, no signs of superimposed bacterial pneumonia Follow clinically Creatinine normal - Stable, nearly asymptomatic from COVID standpoint. PCR continues to be positive, next check 12/25. will need two neg tests 24 hours apart to move to [facility] (2) Hypokalemia: Plan: Magnesium 1.8, potassium 3.1 on admission, repleted (3) Panic disorder/agoraphobia, sev agoraphobic avoidance/mod panic attack: Plan: Patient with extensive history of bipolar 1, panic, agoraphobia, and PTSD Reviewed with psychiatry. Will admit to medicine and consult Continue lorazepam and hydroxyzine as needed discussed with psychiatry. Patient does have chronic suicidality, but is without acute crisis at this time and good insight and able to use coping strategies. We will continue one-to-one, but discontinue suicide precautions so that patient may use the bathroom/shower without direct observation given her trauma history. TSH normal on admission Placement is most acute challenge at this time. Is still a resident of [facility] but does not wish to return there on housing vouchers. Hotel was with poor hygiene which exacerbated patient's underlying issues and was a poor therapeutic environment for her. Psych case management to coordinate with case management to look into discharge options. - Continuing Abilify 10mg. Defer latuda/propranolol at this time. NO akasthesia. Continues to have struggle with OCD compulsions and no outpatient plan identified, anticipates [facility] transfer when available. Appreciate psych consultation (4) Post traumatic stress disorder (PTSD): Plan: As noted (5) Suicidal ideations: Plan: As noted (6) Anxiety: Plan: As noted (7) Bipolar 1 disorder with moderate meet: Plan: As noted (8) Panic disorder: Plan: As noted Plan: DVT prophylaxis: Lovenox CODE STATUS: Full code Disposition medical surgical, COVID isolation Diet: Regular Admission and Anticipated Discharge Date Admission Date: December 19, 2021 Subjective Seen at bedside. No shortness of breath, difficulty breathing, lightheadedness, dizziness today. Chest congestion improved with mucinex. No ear pain today. Minimal congestion. Continues to have difficulty with habits, eating, and bathrooming due to being out of her normal habit. Endorses inner restlessness. Review of Systems Review of Systems: All systems reviewed & are unremarkable except as noted in Subjective Physical Exam Physical Exam: Some components of the exam deferred at patient request due to history of PTSD/OCD/agoraphobia General: A&Ox3. Speech fluent, mostly goal-directed. not responding to internal stimuli. HEENT: Atraumatic, normocephalic. Visual acuity and hearing grossly intact. Pulm: Symmetrical chest rise. No increase in work of breathing. No respiratory distress. Extremities: Moving all extremities equally. Results & Data Results & Data ([facility]) Vital Signs (Past 12 Hours) Vital Signs Temp Pulse Resp BP Pulse Ox 12/24/21 08:44 36.9 C 124 H 18 112/86 97 12/24/21 02:36 36.5 C 105 H 18 130/85 98 PG Care Time/CCT Total # of Minutes Spent Total Time Spent with Patient: Total time spent is greater than 50% in coordination of care (as documented) at patient's floor/unit and/or counseling patient: Coding Level of Care Code 94859 Subseq Hosp Care Lvl 1 Diagnoses COVID-19 U07.1 Hypokalemia E87.6 Panic disorder/agoraphobia, sev agoraphobic avoidance/mod panic attack F40.01 Post traumatic stress disorder (PTSD) F43.10 Suicidal ideations R45.851 Anxiety F41.9 Bipolar 1 disorder with moderate meet F31.12 Panic disorder F41.0
[2021-12-24] MEDS: guaiFENesin 600 MG TABCR PO PRN (12:33)
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
[2021-12-24] MEDS: SIMETHICONE 80 MG CHEW PO PRN ×2 (15:14→18:16)
[2021-12-24 17:38] LABS: Influenza A virus by PCR Negative (Neg); Influenza B virus by PCR Negative (Neg); RSV by PCR Negative (Neg)
[2021-12-24 18:07] LABS: SARS CoV2 RNA(COVID-19) InHosp POSITIVE (Negative)
[2021-12-25] MEDS: hydrOXYzine HCl 25 MG TAB PO PRN ×2 (03:48→14:04)
[2021-12-25] MEDS: ARIPiprazole 10 MG TAB PO SCH (08:39)
[2021-12-25] MEDS: ENOXAPARIN INJ 40 MG/0.4 ML SYR SQ SCH ×2 (08:39→21:16)
[2021-12-25] MEDS: SIMETHICONE 80 MG CHEW PO PRN ×2 (08:39)
[2021-12-25] MEDS: MULTIVITAMIN CHEWABLE TAB PO SCH (08:39)
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
[2021-12-25] MEDS: guaiFENesin 600 MG TABCR PO PRN ×2 (15:12)
[2021-12-25] MEDS: FLUTICASONE PROPIONATE NA SPR 16 GM BTL PRN ×2 (15:21→21:17)
--- NOTE | 2021-12-25 17:09 | Hospitalist Progress Note ---
Date of Service December 25, 2021 Assessment & Plan (1) COVID-19: Plan: COVID-19 positive on admission Will admit to medical service with psychiatry on consult 100% SPO2 on room air, no hypoxia. Minimal cough Steroids, remdesivir not indicated at this time CRP down trended COVID isolation Patient is vaccinated with booster No leukocytosis, no signs of superimposed bacterial pneumonia Follow clinically Creatinine normal - Stable, nearly asymptomatic from COVID standpoint. PCR continues to be positive, next check 12/25 if no alternative placement identified will need two neg tests 24 hours apart to move to [facility] Reviewed with Dr. Zamarripa. Is actually improving from a psychiatric standpoint and they are working on securing alternative disposition options. Family has been resistant to placement with them, and how tolerates at a challenge in the setting of graduation weekend and high cost. Ideally could potentially be discharged in the next 1 to 2 days. We will continue to follow. Also suicidality improved, may come off one-to-one at this time. Appreciate recommendations. (2) Hypokalemia: Plan: Magnesium 1.8, potassium 3.1 on admission, repleted (3) Panic disorder/agoraphobia, sev agoraphobic avoidance/mod panic attack: Plan: Patient with extensive history of bipolar 1, panic, agoraphobia, and PTSD Reviewed with psychiatry. Will admit to medicine and consult Continue lorazepam and hydroxyzine as needed discussed with psychiatry. Patient does have chronic suicidality, but is without acute crisis at this time and good insight and able to use coping strategies. We will continue one-to-one, but discontinue suicide precautions so that patient may use the bathroom/shower without direct observation given her trauma history. TSH normal on admission Placement is most acute challenge at this time. Is still a resident of [facility] but does not wish to return there on housing vouchers. Hotel was with poor hygiene which exacerbated patient's underlying issues and was a poor therapeutic environment for her. Psych case management to coordinate with case management to look into discharge options. - Continuing Abilify 10mg. Defer latuda/propranolol at this time. NO akasthesia. alternative placement planning as noted above. Appreciate psych consultation (4) Post traumatic stress disorder (PTSD): Plan: As noted (5) Suicidal ideations: Plan: As noted (6) Anxiety: Plan: As noted (7) Bipolar 1 disorder with moderate meet: Plan: As noted (8) Panic disorder: Plan: As noted Plan: DVT prophylaxis: Lovenox CODE STATUS: Full code Disposition medical surgical, COVID isolation Diet: Regular Admission and Anticipated Discharge Date Admission Date: December 19, 2021 Subjective Doing well today. Patient was somewhat anxious as she thought she was to be discharged today and was not ready or did not have planning, discussed that she is medically ready for discharge and that she is doing well and should be discharged to a safe environment. She is working on placement with psych and case management. Sore throat and sinus congestion improved with Mucinex and Flonase. Breathing comfortably on room air. No cough today. No chest pain, chest pressure, fever, chills, sweats. Review of Systems Review of Systems: All systems reviewed & are unremarkable except as noted in Subjective Physical Exam Physical Exam: Some components of the exam deferred at patient request due to history of PTSD/OCD/agoraphobia General: A&Ox3. Speech fluent, mostly goal-directed. not responding to internal stimuli. HEENT: Atraumatic, normocephalic. Visual acuity and hearing grossly intact. Pulm: Symmetrical chest rise. No increase in work of breathing. No respiratory distress. Extremities: Moving all extremities equally. Results & Data Results & Data ([facility]) Vital Signs (Past 12 Hours) Vital Signs Temp Pulse Resp BP Pulse Ox 12/25/21 07:23 36.5 C 110 H 16 117/78 100 PG Care Time/CCT Total # of Minutes Spent Total Time Spent with Patient: Total time spent is greater than 50% in coordination of care (as documented) at patient's floor/unit and/or counseling patient: Coding Level of Care Code 88829 Subseq Hosp Care Lvl 1 Diagnoses COVID-19 U07.1 Hypokalemia E87.6 Panic disorder/agoraphobia, sev agoraphobic avoidance/mod panic attack F40.01 Post traumatic stress disorder (PTSD) F43.10 Suicidal ideations R45.851 Anxiety F41.9 Bipolar 1 disorder with moderate meet F31.12 Panic disorder F41.0
[2021-12-26] MEDS: guaiFENesin 600 MG TABCR PO PRN ×2 (03:02→18:09)
[2021-12-26] MEDS: FLUTICASONE PROPIONATE NA SPR 16 GM BTL PRN ×2 (08:42→18:09)
[2021-12-26] MEDS: ENOXAPARIN INJ 40 MG/0.4 ML SYR SQ SCH ×2 (08:43→20:56)
[2021-12-26] MEDS: ARIPiprazole 10 MG TAB PO SCH (08:58)
--- NOTE | 2021-12-26 09:20 | Hospitalist Progress Note ---
Date of Service December 26, 2021 Assessment & Plan (1) COVID-19: Plan: COVID-19 positive on admission, first positive test 12/19/21 100% SPO2 on room air, no hypoxia. Minimal cough Steroids, remdesivir not indicated CRP down trended COVID isolation in hospital until 12/29, but could be home if safe location is secured Patient is vaccinated with booster - Stable, nearly asymptomatic from COVID standpoint. Reviewed with Dr. Zamarripa. Is actually improving from a psychiatric standpoint and they are working on securing alternative disposition options. Family has been resistant to placement with them, Ideally could potentially be discharged in the next 1 to 2 days. suicidality thoughts resolved, off one-to-one at this time. (2) Hypokalemia: Plan: Magnesium 1.8, potassium 3.1 on admission, repleted (3) Panic disorder/agoraphobia, sev agoraphobic avoidance/mod panic attack: Plan: Patient with extensive history of bipolar 1, panic, agoraphobia, and PTSD lorazepam and hydroxyzine as needed discussed with psychiatry. Patient does have chronic suicidality, but is without acute crisis at this time and good insight and able to use coping strategies. discontinue suicide precautions Placement is most acute challenge at this time. Is still a resident of [facility] but does not wish to return there on housing vouchers. Hotel was with poor hygiene which exacerbated patient's underlying issues and was a poor therapeutic environment for her. Psych case management to coordinate with case management to look into discharge options. - Continuing Abilify 10mg. Defer latuda/propranolol at this time. NO akasthesia. alternative placement planning (4) Post traumatic stress disorder (PTSD): (5) Suicidal ideations: (6) Anxiety: (7) Bipolar 1 disorder with moderate meet: (8) Panic disorder: Plan: DVT prophylaxis: early ambulation CODE STATUS: Full code Disposition medical surgical, COVID isolation Diet: Regular Admission and Anticipated Discharge Date Admission Date: December 19, 2021 Subjective pt was seen in room pacing does have rapid speech but can link thoughts and make sense still no pulmonary symptoms of COVID no loss of taste or smell or diarrhea disposition to housing is the biggest issue, she is not wanting to return to home, is not resident of [facility] or [facility]. Challenging with mental health social worker. Review of Systems Review of Systems: N0 respiratory distress no headache, no visual changes no speech or swallowing issues no chest pain, pressure or palpitations no shortness of breath, cough or wheezes no abdominal pain, nausea or vomiting, diarrhea or constipation no dysuria, hematuria or frequency no focal joint pain or swelling no back pain, CVA tenderness or radicular pain no bruising, bleeding or rashes no focal signs of weakness or numbness or altered sensation pt states her anxiety is manageable Physical Exam Physical Exam: The patient appeared well nourished and normally developed. Vital signs as documented. Head exam is normocephalic atraumatic Neck is without JVD, thyromegaly, or carotid bruits. Lungs are clear to auscultation, no focal loss of breath sounds Cardiac exam, Rhythm is regular.. No murmurs, rubs or gallops. Abdominal exam reveals normal bowel sounds, soft non tender, no masses Extremities are nonedematous and both pedal pulses are present Neurologic exam is alert and oriented, no focal loss of strength or sensation Skin is without bruises or rashes Psychologically is with baseline anxiety and depression, ocd symptoms in room, cleaning / pacing Results & Data Results & Data ([facility]) Vital Signs (Past 12 Hours) Vital Signs Temp Pulse Resp BP Pulse Ox 12/26/21 09:05 97.5 F L 117 H 16 120/81 96 PG Care Time/CCT Total # of Minutes Spent Total Time Spent with Patient: Total time spent is greater than 50% in coordination of care (as documented) at patient's floor/unit and/or counseling patient: Coding Level of Care Code 51838 Subseq Hosp Care Lvl 2 Diagnoses COVID-19 U07.1 Hypokalemia E87.6 Panic disorder/agoraphobia, sev agoraphobic avoidance/mod panic attack F40.01 Post traumatic stress disorder (PTSD) F43.10 Suicidal ideations R45.851 Anxiety F41.9 Bipolar 1 disorder with moderate meet F31.12 Panic disorder F41.0
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
[2021-12-26] MEDS: MULTIVITAMIN CHEWABLE TAB PO SCH (18:09)
[2021-12-27] MEDS ORDERED: COUGH DROP (SUGAR FREE) LOZ 24 LOZ/1 BOX BUCCAL PRN (01:58)
[2021-12-27] MEDS: guaiFENesin 600 MG TABCR PO PRN (06:26)
[2021-12-27] MEDS: FLUTICASONE PROPIONATE NA SPR 16 GM BTL PRN (06:28)
[2021-12-27] MEDS: ENOXAPARIN INJ 40 MG/0.4 ML SYR SQ SCH (09:13)
[2021-12-27] MEDS: ARIPiprazole 10 MG TAB PO SCH (09:14)
[2021-12-27] MEDS: MULTIVITAMIN CHEWABLE TAB PO SCH (09:14)
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
--- NOTE | 2021-12-27 13:40 | Discharge Summary ---
Date of Service December 27, 2021 Principal Diagnosis auditory and tactile hallucinations Bipolar disorder 1 covid infection without clinical symptoms Discharge Exam The patient appeared well Vital signs as documented. Extremities are nonedematous Neurologic exam is alert and oriented, no focal loss of strength or sensation Skin is without bruises or rashes Discharge Data Allergies Allergy/AdvReac Type Severity Reaction Status Date / Time No Known Allergies Allergy Verified 12/19/21 15:46 Consultations 12/19/21 17:17 ED Decision to Admit Stat 12/19/21 22:56 Consult Psychiatry Routine 12/20/21 00:06 Consult Behavioral Health Liaison Routine Hospital Course (1) COVID-19: COVID-19 positive on admission, first positive test 12/19/21, 11 days post test is 12/30/21 100% SPO2 on room air, no hypoxia. Minimal cough Steroids, remdesivir not indicated CRP down trended COVID isolation in hospital until 12/30, but could be home if safe location is secured, pt will go to hotel Patient is vaccinated with booster - Stable, asymptomatic from COVID standpoint. Reviewed with Dr. Zamarripa. Is actually improved from a psychiatric standpoint and have helped Cain decide to go to [facility]. Family has been resistant to placement with them, -suicidality thoughts resolved, off one-to-one at this time. (2) Hypokalemia: Magnesium 1.8, potassium 3.1 on admission, repleted (3) Panic disorder/agoraphobia, sev agoraphobic avoidance/mod panic attack: Patient with extensive history of bipolar 1, panic, agoraphobia, and PTSD discussed with psychiatry. Patient does have chronic suicidality, but is without acute crisis at this time and good insight and able to use coping strategies. discontinue suicide precautions Placement is most acute challenge at this time. Is still a resident of [facility] but does not wish to return there on housing vouchers since she has not yet established residency in [facility], pt has agreed to go to local [facility] - Continuing Abilify 10mg at time of discharge, one month supply per psychiatric recommendation (4) Post traumatic stress disorder (PTSD): (5) Suicidal ideations: acute issue has resolved (6) Anxiety: (7) Bipolar 1 disorder with moderate meet: (8) Panic disorder: CODE STATUS: Full code Total Time Total Time Spent Total Time Spent (In Minutes): It required greater than 30 minutes to prepare this patient for discharge, majority of time included discussion with case management responding to service excellence email, discussing with Dr. Oconnor in psychiatric care and seen the patient Discharge Plan Discharge Items Patient Disposition: Home - Self-Care Reason For Visit: HALLUCINATION, COVID+ Discharge Diagnosis: covid infection without pulmonary symptoms hallucinations resolved Activity: Per Instructions section Non-emergency contact: Primary Care Provider Call non-emergency contact if: your symptoms worsen Follow-up/Referrals: Carol Scott MD [Primary Care Provider] - Diet: Regular Addtl Attending Provider Instructions: Please continue your medications and follow up with your mental health provider once you return to home, you have had some abilify sent to a local pharmacy for one month supply. You have been diagnosed with covid infection, it would be recommended that you quarantine yourself for 10 days from your first test or first symptoms, and if at the 10th day you have no symptoms the you can come off quarantine but use common sense precautions. Quarantine means attempting to stay away from people who have not had an active covid infection in the past, and if you have to be around others to wear a mask even if you are indoors, do not share a room to sleep in with others until you are out of quarantine. If you still have symptoms at the 10th day, continue to quarantine until you are symptom free for 48 hours Pending Studies at Discharge: No Stand-Alone Forms: [facility], Smoking Cessation Medications and DC Order Prescriptions: New fluticasone propionate 50 mcg/actuation [place],Suspension 1 spray NA DAILY PRN (Reason: nasal congestion) Qty: 16 RF: 0 guaifenesin [Mucinex] 600 mg Tablet Extended Release 12hr 600 mg PO Q12 PRN (Reason: congestion) Qty: 60 RF: 0 Continued hydroxyzine HCl 25 mg Tablet 25 mg PO Q6 PRN (Reason: anxiety/insomnia) 14 Days Qty: 30 RF: 0 lorazepam 0.5 mg Tablet 0.5 mg PO BID PRN (Reason: Anxiety) 7 Days Qty: 10 RF: 0 valacyclovir 500 mg tablet 500 mg PO BID PRN (Reason: outbreaks) Qty: 0 RF: 0 aripiprazole [Abilify] 10 mg Tablet 10 mg PO QAM 30 Days Qty: 30 RF: 0 Discharge Orders: Discharge Order (Routine); Ordered 12/27/21 Ordered By: Blayne Velazquez/Other Patient Handouts: COVID-19 Home Care Admission Data Admit Date/Time: 12/19/21 18:09 Attending Provider: Blayne Robles Admit Provider: Benitez Comer Primary Care Provider: Carol Scott V. Other Providers: Benitez Comer ; Shirley Zamarripa ; Dahlia Garcia ; Manisha Perez Other Interventions: PSY Interdisciplinary Discharge Planning Last Done: 12/21/21 09:35 Discharge Summary Assessment (RN) Last Done: 12/27/21 11:35 Coding Level of Care Code D/C DAY MANAGEMENT >30 MINS Diagnoses COVID-19 U07.1 Hypokalemia E87.6 Panic disorder/agoraphobia, sev agoraphobic avoidance/mod panic attack F40.01 Post traumatic stress disorder (PTSD) F43.10 Suicidal ideations R45.851 Anxiety F41.9 Bipolar 1 disorder with moderate meet F31.12 Panic disorder F41.0
== END 2021-12-27 12:26 | disposition home or self-care (01) | DRG 885 ==
LOC: ED 13:02 → EDINP 18:09 → SUATTDRO 18:09 → 3W 22:39